=== PATIENT | male | born 1965 | race Caucasian/White ===

== ENCOUNTER 2020-07-25 03:26 | Inpatient (IN) | payer OTHER ==
[~2020-07-25] VITALS: Ht 175.3 cm; Wt 115.2 kg
[2020-07-25] MEDS ORDERED: ACET500 PO (05:59)
[2020-07-25] MEDS ORDERED: IBUP400 PO (06:00)
[2020-07-25 06:35] LABS: BASOPHILS ABSOLUTE AUTO 0.08 K/mm3 (0.00-0.23); BASOPHILS PERCENT AUTO 0 % (0-2); EOSINOPHILS ABSOLUTE AUTO 0.02 K/mm3 (0.00-0.68); EOSINOPHILS PERCENT AUTO 0 % (0-6); Hematocrit 43.2 % (37.0-53.0); Hemoglobin 14.4 g/dL (13.5-17.5); IMMATURE GRAN ABSOLUTE AUTO 0.11 K/mm3 (0.00-0.10); IMMATURE GRAN PERCENT AUTO 1 % (0-1); LYMPHOCYTES ABSOLUTE AUTO 1.59 K/mm3 (0.84-5.20); LYMPHOCYTES PERCENT AUTO 8 % (21-46); MONOCYTES ABSOLUTE AUTO 1.47 K/mm3 (0.16-1.47); MONOCYTES PERCENT AUTO 7 % (4-13); Mean Corpuscular HGB 29.9 pg (26.0-34.0); Mean Corpuscular HGB Conc 33.3 g/dL (31.5-36.5); Mean Corpuscular Volume 90 fL (80-100); Mean Platelet Volume 12.1 fL (9.1-12.4); NEUTROPHILS ABSOLUTE AUTO 17.17 K/mm3 (1.96-9.15); NEUTROPHILS PERCENT AUTO 84 % (41-73); Platelet Count 165 K/mm3 (150-400); RDW Coefficient Variation 13.9 % (11.7-14.2); RDW Standard Deviation 45.4 fL (35.1-46.3); Red Blood Cell Count 4.82 M/mm3 (4.30-5.90); White Blood Cell Count 20.44 K/mm3 (4.00-11.30)
[2020-07-25 06:57] LABS: Alanine Aminotransfer (ALT/SGP 31 U/L (12-78); Albumin, Blood 2.5 g/dL (3.4-5.0); Albumin/Globulin Ratio 0.5 (0.8-1.8); Alk Phos 108 U/L (50-136); Anion Gap 8 mmol/L (6-16); Aspartate Aminotrans (AST/SGOT 23 U/L (12-37); Bilirubin, Total 1.1 mg/dL (0.1-1.0); Blood Urea Nitrogen 5 mg/dL (8-24); Bun/Creatinine Ratio 11.3 (12.0-20.0); CO2, Blood 26 mmol/L (21-32); Calcium, Blood 8.5 mg/dL (8.5-10.1); Chloride, Blood 96 mmol/L (98-108); Creatinine, Blood 0.44 mg/dL (0.60-1.20); Globulin, Blood 4.9 g/dL (2.2-4.0); Glomerular Filtration Rate >60 (60-); Glucose, Blood 322 mg/dL (70-99); Potassium, Blood 3.6 mmol/L (3.5-5.5); Sodium, Blood 130 mmol/L (136-145); Total Protein, Blood 7.4 g/dL (6.4-8.2)
--- NOTE | 2020-07-25 10:04 | NUR ---
ATTEMPTED TO COMPLETE ADMISSION HX 2 TIMES ON SEPARATE OCCASIONS, EACH TIME PT WOULD FALL ASLEEP MID SENTENCE AND BE UNABLE TO ANSWER QUESTIONS APPROPRIATELY. WILL TRY AGAIN LATER WHEN PT IS MORE AWAKE.
[2020-07-25 10:37] LABS: SARS-Cov-2 (COVID-19) PCR, MMC NEGATIVE (NEGATIVE)
--- NOTE | 2020-07-25 11:20 | NUR ---
1050 DAY SURGERY TO ROOM TO TAKE PT TO OR.
--- NOTE | 2020-07-25 11:45 | NUR ---
IV 20 G LF WAS RUNNING WELL BUT THEN INFILTRATED. IV DC'D INTACT.
--- NOTE | 2020-07-25 11:45 | NUR ---
History, Chart, Medications and Allergies reviewed before start of procedure. Lungs clear T/O to Auscultation. Patient confirms NPO status and agrees with scheduled surgery. Pre-Op teaching done. Pt verbalizes understanding.
--- NOTE | 2020-07-25 13:39 | NUR ---
RETURNED FROM PACU, DROWSY BUT AROUSABLE. DENIES ANY DISCOMFORT, VSS. DRESSING TO LEFT AND POSTERIOR NECK DRY AND INTACT.
--- NOTE | 2020-07-25 15:00 | NUR ---
1330 PT TO ROOM FROM DAY SURGERY, PT GROGGY AT THIS TIME. ARRIVED W/ GAUZE AND TAPE TO POSTERIOR NECK & L SIDE OF NECK W/ ANTONI DRAIN UNDERNEATH GAUZE. DRAINAGE IS MINIMAL AND RED IN COLOR. VSS. NOTIFED TELE MONITOR PT WAS BACK TO ROOM & TELE WAS HOOKED BACK UP. PT DOES NOT DISPLAY ANY SIGNS OF PAIN AT THIS TIME. LUNG SOUNDS CLEAR, PT CURRENTLY ON 2L O2 VIA NC, SATURATIONS 95%. PT SLEEPING AT THIS TIME, WILL CONTINUE TO MONITOR AND ASSESS FURTHER.
--- NOTE | 2020-07-25 17:37 | NUR ---
DRESSING TO L POSTERIOR NECK CHANGED. 1 ABD PAD & 4X4 PACKAGE OF 10s FULLY SATURATED W/ SEROSANGUINOUS FLUID. LEFT SOME 4X4s IN PLACE ANTONI DRAIN WAS WRAPPED WITHIN, REINFORCED DRESSIGN WITH ADDITIONAL 4X4s, ABD PAD, & TAPE.
--- NOTE | 2020-07-25 18:26 | NUR ---
SHIFT SUMMARY S/P I&D ABCESS TO L POSTERIOR NECK. ANTONI DRAIN IN PLACE W/ 4X4 PACKAGE OF TEN, ABD PAD, & TAPE, DRAINING SEROUSANGUINOUS FLUID. DRESSING CHANGED ONCE SINCE ARRIVAL FROM SURGERY, 4X4s & ABD PAD WERE SATURATED W/ SEROUSANGUINOUS FLUID, REINFORCED DRESSING W/ ADDITIONAL 4X4s & ABD PAD. PT DENIES PAIN AT THIS TIME. TOLERATING PO FOOD & FLUIDS, PT ON ADA DIET, DENIES N/V. PT HAS BEEN ASLEEP MOST OF SHIFT. BLE EDEMA W/ REDNESS TO LLL. VSS. ON TELE, SINUS TACH IN THE TEENS. GOT PT OUT OF BED & TO BATHROOM TO VOID, AMBULATES WELL W/ SBA. SCDS IN PLACE. NO ACUTE EVENTS T/O SHIFT, WILL CONTINUE TO MONITOR & REPORT TO ONCOMING RN.
--- NOTE | 2020-07-25 21:00 | NUR ---
PT HAS BEEN LETHARGIC.SLOW TO WAKE.REQUIRING STAFF TO ELEVATE VOICE TO WAKE HIM FOR ASSESSMENTS AND CALLS PER FAMILY.PT IRRITABLE.CURSING USING F WORDS.STATING STAFF ARE IRRITATING HIM AND YELLING AT HIM.DURING BEDSIDE REPORT STAFF RAISED GOWN OVER L SHOULDER IT WAS HANGING OFF,AND PT STATED STAFF WERE BEING ROUGH WITH HIM.WHILE AWAKE,PT ATTEMPTED TO EAT DINNER AND COUGHING.SPITTING RICE OUT OF MOUTH COMPLAINING IT TASTED AWFUL AND WAS TOO DRY.DIETARY CONSULT WILL BE PLACED FOR MEETING PTS DESIRED FOODS AND PREPARATION. DUE TO COUGHING,RICK HAVE PT TAKE PO CAUTIOUSLY. DR BELL ROUNDING AND AWARE OF LETHARGY AND COUGHING WITH PO INTAKE. HE ADVISED LIMIT MORE TO LIQUIDS TONIGHT AND PROVIDE WITH OBSERVATION.
--- NOTE | 2020-07-25 22:55 | NUR ---
PT SPOKE WITH SISTER CANDIDA.AFTER WAKING FULLY,PT MORE PLEASANT AND COOPERATIVE.NOT CURSING AT STAFF.CBG 353.INSULIN GIVEN PER ORDERS AND NOTIFIED [place] OF CBG 353.NO NEW ORDERS RECEIVED.
--- NOTE | 2020-07-26 04:30 | NUR ---
SUMMARY PT ALERTNESS AND BEHAVIOR TOWARD STAFF CONTINUES TO IMPROVE. RECEIVED + BLOOD CX RESULTS TONIGHT.WITH ROUNDING TONIGHT,DR ARABELLA MAYA HE IS AWARE PT IS SEPTIC AND DID NOT WISH TO CHANGE ANY ORDERS.PT TOLERATING PO WITHOUT COUGH THIS AM.
[2020-07-26 04:48] LABS: BASOPHILS ABSOLUTE AUTO 0.07 K/mm3 (0.00-0.23); BASOPHILS PERCENT AUTO 1 % (0-2); EOSINOPHILS ABSOLUTE AUTO 0.12 K/mm3 (0.00-0.68); EOSINOPHILS PERCENT AUTO 1 % (0-6); Hematocrit 38.1 % (37.0-53.0); Hemoglobin 12.6 g/dL (13.5-17.5); IMMATURE GRAN ABSOLUTE AUTO 0.08 K/mm3 (0.00-0.10); IMMATURE GRAN PERCENT AUTO 1 % (0-1); LYMPHOCYTES PERCENT AUTO 14 % (21-46); MONOCYTES ABSOLUTE AUTO 1.12 K/mm3 (0.16-1.47); MONOCYTES PERCENT AUTO 8 % (4-13); Mean Corpuscular HGB 29.8 pg (26.0-34.0); Mean Corpuscular HGB Conc 33.1 g/dL (31.5-36.5); Mean Corpuscular Volume 90 fL (80-100); Mean Platelet Volume 11.7 fL (9.1-12.4); NEUTROPHILS ABSOLUTE AUTO 10.27 K/mm3 (1.96-9.15); NEUTROPHILS PERCENT AUTO 76 % (41-73); Platelet Count 153 K/mm3 (150-400); RDW Coefficient Variation 14.1 % (11.7-14.2); RDW Standard Deviation 46.7 fL (35.1-46.3); Red Blood Cell Count 4.23 M/mm3 (4.30-5.90); White Blood Cell Count 13.56 K/mm3 (4.00-11.30)
[2020-07-26 05:06] LABS: Alanine Aminotransfer (ALT/SGP 27 U/L (12-78); Albumin, Blood 1.9 g/dL (3.4-5.0); Albumin/Globulin Ratio 0.5 (0.8-1.8); Alk Phos 96 U/L (50-136); Anion Gap 6 mmol/L (6-16); Aspartate Aminotrans (AST/SGOT 26 U/L (12-37); Bilirubin, Total 1.1 mg/dL (0.1-1.0); Blood Urea Nitrogen 9 mg/dL (8-24); Bun/Creatinine Ratio 18.9 (12.0-20.0); CO2, Blood 28 mmol/L (21-32); Calcium, Blood 7.7 mg/dL (8.5-10.1); Chloride, Blood 96 mmol/L (98-108); Creatinine, Blood 0.48 mg/dL (0.60-1.20); Globulin, Blood 4.2 g/dL (2.2-4.0); Glomerular Filtration Rate >60 (60-); Glucose, Blood 291 mg/dL (70-99); Phosphorus, Blood 2.3 mg/dL (2.5-4.9); Potassium, Blood 3.3 mmol/L (3.5-5.5); Sodium, Blood 130 mmol/L (136-145); Total Protein, Blood 6.1 g/dL (6.4-8.2)
--- NOTE | 2020-07-26 10:51 | NUR ---
dressing removed from neck so patient can shower. dressing saturated with bloody drainage with treviño purulent material presemt. sallie drain in place and looped throgh 2 incisions on neck
[2020-07-26 13:53] LABS: Vancomycin, Trough 14.1 ug/mL (5.0-10.0)
--- NOTE | 2020-07-26 17:12 | NUR ---
SHIFT SUMMARY POD1 I&D ABCESS L POSTERIOR NECK. POSITIVE BLOOD & WOUND CX FOR MRSA. PAIN CONTROLLED PER EMAR. RECEIVING ABX PER EMAR. PT TOLERATING ADA DIET W/ NO TROUBLES SWALLOWING OR COUGHING. DENIES N/V. PT REPORT CHRONIC N/T TO L LOWER LEG. PT LETHARGIC MOST OF SHIFT, UP TO SHOWER ONCE DURING DAY. DRESSING CHANGED BY DR BELL THIS AM, INSTRUCTED PT TO SHOWER AND ALLOW SOAPY WATER TO RUN OVER ABCESS. REAPPLIED DRESSING TO ANTONI DRAIN W/ 4X4 GAUZE AND TAPE. DRAINING SEROUSANGUINOUS AND BROWNISH/NICOLE FLUID, SATURATED 4X4 PACKAGE OF TENS. PT OCCASIONALLY IRRITABLE T/O SHIFT. BLE EDEMA AND REDNESS TO L LOWER LEG, WEEPY & LEAKING YELLOW FLUID. PT RESTING AT THIS TIME, CALL LIGHT WITHIN REACH, WILL CONTINUE TO MONITOR & REPORT TO ONCOMING RN.
--- NOTE | 2020-07-26 17:29 | NUR ---
DR HERNANDEZ NOTIFIED OF CBG OF 404, NO NEW ORDERS
--- NOTE | 2020-07-27 04:05 | NUR ---
SHIFT SUMMARY POD#1 POSTERIOR NECK I+D. AAOX4. DRESSING TO NECK CHANGED THIS AM AT 0330, MODERATE AMOUNT OF SS/THICK PURULENT DRAINAGE NOTED. PAIN CONTROLLED WITH 2MG PO DILAUDID Q4H. NO NAUSEA/EMESIS. IV ABX PER ORDERS. BLE EDEMA + CELLULITIS NOTED, ELEVATED ON PILLOWS. REFUSING SCDs. GOOD PO INTAKE + OUTPUT. ELEVATED CHEMBGs, COVERED PER HIGH SLIDING SCALE + SEMGLEE INCREASED STARTED YESTARDAY EVENING. PT RESTED WELL T/O NIGHT. AWAITING LAB DRAW THIS AM. PT CURRENTLY RESTING IN BED WITH CALL LIGHT IN REACH.
[2020-07-27 05:11] LABS: BASOPHILS ABSOLUTE AUTO 0.05 K/mm3 (0.00-0.23); BASOPHILS PERCENT AUTO 1 % (0-2); EOSINOPHILS ABSOLUTE AUTO 0.19 K/mm3 (0.00-0.68); EOSINOPHILS PERCENT AUTO 2 % (0-6); Hemoglobin 12.7 g/dL (13.5-17.5); IMMATURE GRAN ABSOLUTE AUTO 0.06 K/mm3 (0.00-0.10); IMMATURE GRAN PERCENT AUTO 1 % (0-1); LYMPHOCYTES ABSOLUTE AUTO 1.29 K/mm3 (0.84-5.20); LYMPHOCYTES PERCENT AUTO 16 % (21-46); MONOCYTES ABSOLUTE AUTO 0.89 K/mm3 (0.16-1.47); MONOCYTES PERCENT AUTO 11 % (4-13); Mean Corpuscular HGB 29.5 pg (26.0-34.0); Mean Corpuscular HGB Conc 33.4 g/dL (31.5-36.5); Mean Corpuscular Volume 88 fL (80-100); Mean Platelet Volume 11.9 fL (9.1-12.4); NEUTROPHILS ABSOLUTE AUTO 5.85 K/mm3 (1.96-9.15); NEUTROPHILS PERCENT AUTO 70 % (41-73); Platelet Count 157 K/mm3 (150-400); RDW Coefficient Variation 14.1 % (11.7-14.2); RDW Standard Deviation 45.2 fL (35.1-46.3); Red Blood Cell Count 4.31 M/mm3 (4.30-5.90); White Blood Cell Count 8.33 K/mm3 (4.00-11.30)
[2020-07-27 05:33] LABS: Anion Gap 7 mmol/L (6-16); Blood Urea Nitrogen 10 mg/dL (8-24); Bun/Creatinine Ratio 23.6 (12.0-20.0); CO2, Blood 27 mmol/L (21-32); Calcium, Blood 7.6 mg/dL (8.5-10.1); Chloride, Blood 95 mmol/L (98-108); Creatinine, Blood 0.42 mg/dL (0.60-1.20); Glomerular Filtration Rate >60 (60-); Glucose, Blood 345 mg/dL (70-99); Potassium, Blood 3.5 mmol/L (3.5-5.5); Sodium, Blood 129 mmol/L (136-145)
--- NOTE | 2020-07-27 12:43 | NUR ---
PT SHOWERED, DRESSING CHANGED ON NECK.
--- NOTE | 2020-07-27 18:02 | NUR ---
SHIFT SUMMARY PT IS A/OX4, SBA IN ROOM. PT AMBULATED TO BATHROOM SEVERAL TIMES THIS SHIFT. PT HAD SHOWER TODAY, HAD DRESSINGS CHANGED, AND LINENS CHANGED. PT HAS BEEN TOLERATING PO INTAKE AND VOIDING. PROVIDER INCREASED INSULIN TODAY AND ORDERED BENADRYL CREAM FOR LEGS. PAIN HAS BEEN MANAGED WITH PO DILAUDED PRN PER ORDER. PT RESTING AT THIS TIME WATCHING TV. CALL LIGHT IN REACH.
[2020-07-28 05:05] LABS: BASOPHILS ABSOLUTE AUTO 0.04 K/mm3 (0.00-0.23); BASOPHILS PERCENT AUTO 1 % (0-2); EOSINOPHILS ABSOLUTE AUTO 0.15 K/mm3 (0.00-0.68); EOSINOPHILS PERCENT AUTO 2 % (0-6); Hematocrit 40.2 % (37.0-53.0); Hemoglobin 13.6 g/dL (13.5-17.5); IMMATURE GRAN ABSOLUTE AUTO 0.07 K/mm3 (0.00-0.10); IMMATURE GRAN PERCENT AUTO 1 % (0-1); LYMPHOCYTES ABSOLUTE AUTO 1.46 K/mm3 (0.84-5.20); LYMPHOCYTES PERCENT AUTO 21 % (21-46); MONOCYTES ABSOLUTE AUTO 0.68 K/mm3 (0.16-1.47); MONOCYTES PERCENT AUTO 10 % (4-13); Mean Corpuscular HGB 29.4 pg (26.0-34.0); Mean Corpuscular HGB Conc 33.8 g/dL (31.5-36.5); Mean Corpuscular Volume 87 fL (80-100); Mean Platelet Volume 11.5 fL (9.1-12.4); NEUTROPHILS ABSOLUTE AUTO 4.42 K/mm3 (1.96-9.15); NEUTROPHILS PERCENT AUTO 65 % (41-73); Platelet Count 163 K/mm3 (150-400); RDW Coefficient Variation 13.8 % (11.7-14.2); RDW Standard Deviation 44.2 fL (35.1-46.3); Red Blood Cell Count 4.62 M/mm3 (4.30-5.90); White Blood Cell Count 6.82 K/mm3 (4.00-11.30)
--- NOTE | 2020-07-28 05:10 | NUR ---
SHIFT SUMMARY POD#3 I+D NECK ABSCESS. AAOX4. PAIN CONTROLLED WITH 2MG PO DILAUDID Q4H. NO NAUSEA/EMESIS. DRESSING TO POSTERIOR NECK CHANGED X1 THIS SHIFT. IV ABX PER ORDERS. NO ACUTE CHANGES OVER NIGHT. PT UP FOR MOST OF NIGHT, REPORTING THIS SLEEP PATTERN IS HIS BASELINE. CURRENTLY PT IS SITTING UP IN BED WATCHING TV WITH CALL LIGHT IN REACH.
[2020-07-28 05:30] LABS: Anion Gap 7 mmol/L (6-16); Blood Urea Nitrogen 8 mg/dL (8-24); Bun/Creatinine Ratio 18.3 (12.0-20.0); CO2, Blood 27 mmol/L (21-32); Chloride, Blood 94 mmol/L (98-108); Creatinine, Blood 0.44 mg/dL (0.60-1.20); Glomerular Filtration Rate >60 (60-); Glucose, Blood 327 mg/dL (70-99); Potassium, Blood 3.4 mmol/L (3.5-5.5); Sodium, Blood 128 mmol/L (136-145); Vancomycin, Trough 15.4 ug/mL (5.0-10.0)
[2020-07-28 16:43] LABS: Source, Urine Clean Catch
[2020-07-28 16:53] LABS: Appearance, Urine Clear (Clear); Bilirubin, Urine Neg (Neg); Blood, Urine Neg (Neg); Color, Urine Yellow (P-Yellow); Glucose Qualitative, Urine 2+ (Neg); Ketones, Urine Neg (Neg); Leukocyte Esterase, Urine Neg (Neg); Nitrite, Urine Neg (Neg); Protein, Urine Neg (Neg); Urobilinogen, Urine NORM (Normal)
--- NOTE | 2020-07-28 17:17 | NUR ---
SHIFT SUMMARY PT HAS BEEN A/OX 4, IND IN ROOM AND UP TO BATHROOM. PT TOLERATING PO INTAKE AND VOIDING. PT HAD SHOWER TODAY AND LINENS WERE CHANGED. DRESSING ON NECK HAS BEEN CHANGED X2 THIS SHIFT. PT HAS A SPOT ON HIS LLE THAT HAS BEEN OOZING A SMALL AMOUNT; ASSESSED BY DR. BELL THIS MORNING, STATES NO NEED FOR INTERVENTION AT THIS TIME. DIURETICS STARTED THIS EVENING BY HOSPITALIST. INSULIN ALSO ADJUSTED TODAY. PT SITTING ON EDGE OF BED EATING DINNER AT THIS TIME.
--- NOTE | 2020-07-29 04:46 | NUR ---
SHIFT SUMMARY POD#4 POSTERIOR NECK I+D WITH ANTONI DRAIN. AAOX4. DISCOMFORT CONTROLLED WITH 2MG PO DILAUDID X1 THIS SHIFT. NO NAUSEA/EMESIS. DRESSING TO POSTERIOR NECK SATURATED X1, CHANGED AT 0300 THIS AM. GOOD PO INTAKE + OUTPUT. ELEVATED BLE T/O NIGHT. NO ACUTE CHANGES OVER NIGHT. PT CURRENTLY RESTING WELL THIS AM WITH CALL LIGHT IN REACH.
[2020-07-29 05:11] LABS: Anion Gap 5 mmol/L (6-16); Blood Urea Nitrogen 5 mg/dL (8-24); Bun/Creatinine Ratio 10.4 (12.0-20.0); CO2, Blood 30 mmol/L (21-32); Calcium, Blood 7.8 mg/dL (8.5-10.1); Chloride, Blood 99 mmol/L (98-108); Creatinine, Blood 0.48 mg/dL (0.60-1.20); Free Thyroxine 1.32 ng/dL (0.70-1.60); Glomerular Filtration Rate >60 (60-); Glucose, Blood 203 mg/dL (70-99); Potassium, Blood 3.2 mmol/L (3.5-5.5); Prostate Specific Antigen 0.737 ng/mL (0.000-4.000); Sodium, Blood 134 mmol/L (136-145)
--- NOTE | 2020-07-29 12:54 | NUR ---
Echocardiogram completed.
--- NOTE | 2020-07-29 17:02 | NUR ---
SUMMARY NO ACUTE CHANGES T/O SHIFT. PT INDEPENDENT IN ROOM. NEW POWERGLIDE TO RUE. IV ABX INFUSING AT THIS TIME. PT CBG THIS EVENING 124. USES CALL LIGHT APPROPRIATELY, WHICH IS IN REACH.
--- NOTE | 2020-07-29 19:04 | NUR ---
REPORT GIVEN TO ONCOMING SHIFT.
--- NOTE | 2020-07-30 05:32 | NUR ---
SHIFT SUMMARY POD1 I&D #2, A/O X4, VSS, TOLERATING PO, AMBULATING INDEPENDENTLY, VOIDING, WOUND CLEANED AND DRESSING CHANGED PER ORDER. NO ACUTE EVENTS THIS SHIFT. CALL LIGHT IN REACH, WILL CTM AND REPORT TO DAY RN.
--- NOTE | 2020-07-30 07:49 | NUR ---
DR BELL IN TO CHANGE DRESSING TO NECK
[2020-07-30 08:11] LABS: HIV SCREEN 4TH GENERATION WRFX Non Reactive (Non Reactive)
[2020-07-31 04:28] LABS: BASOPHILS ABSOLUTE AUTO 0.03 K/mm3 (0.00-0.23); BASOPHILS PERCENT AUTO 1 % (0-2); EOSINOPHILS ABSOLUTE AUTO 0.18 K/mm3 (0.00-0.68); EOSINOPHILS PERCENT AUTO 3 % (0-6); Hematocrit 37.1 % (37.0-53.0); Hemoglobin 12.5 g/dL (13.5-17.5); IMMATURE GRAN ABSOLUTE AUTO 0.04 K/mm3 (0.00-0.10); IMMATURE GRAN PERCENT AUTO 1 % (0-1); LYMPHOCYTES ABSOLUTE AUTO 1.66 K/mm3 (0.84-5.20); LYMPHOCYTES PERCENT AUTO 30 % (21-46); MONOCYTES ABSOLUTE AUTO 0.66 K/mm3 (0.16-1.47); MONOCYTES PERCENT AUTO 12 % (4-13); Mean Corpuscular HGB 29.7 pg (26.0-34.0); Mean Corpuscular HGB Conc 33.7 g/dL (31.5-36.5); Mean Corpuscular Volume 88 fL (80-100); Mean Platelet Volume 11.6 fL (9.1-12.4); NEUTROPHILS PERCENT AUTO 53 % (41-73); Platelet Count 185 K/mm3 (150-400); RDW Coefficient Variation 14.3 % (11.7-14.2); RDW Standard Deviation 45.7 fL (35.1-46.3); Red Blood Cell Count 4.21 M/mm3 (4.30-5.90); White Blood Cell Count 5.47 K/mm3 (4.00-11.30)
[2020-07-31 04:50] LABS: Anion Gap 4 mmol/L (6-16); Blood Urea Nitrogen 9 mg/dL (8-24); Bun/Creatinine Ratio 16.5 (12.0-20.0); CO2, Blood 31 mmol/L (21-32); Calcium, Blood 7.9 mg/dL (8.5-10.1); Chloride, Blood 99 mmol/L (98-108); Creatinine, Blood 0.55 mg/dL (0.60-1.20); Glomerular Filtration Rate >60 (60-); Glucose, Blood 164 mg/dL (70-99); Potassium, Blood 3.6 mmol/L (3.5-5.5); Sodium, Blood 134 mmol/L (136-145)
--- NOTE | 2020-07-31 06:38 | NUR ---
SHIFT SUMMARY SITTING UP ON THE SIDE OF HIS BED WHILE ENJOYING HOT COFFEE. MEDICATED FOR PAIN PER EMAR. HAS RESTED WELL OFF AND ON THIS SHIFT. DRESSING TO NECK REMAINS C/D/I. INDEPENDENT IN THE ROOM. AM LABS DRAWN FROM POWERIDE. CONTINENT OF BOWEL AND BLADDER. DENIES FURTHER NEEDS OR WANTS AT THIS TIME. SAFETY MEASURES IN PLACE. WILL CONTINUE TO MONITOR AND ADDRESS NEEDS THEY ARISE. WILL GIVE HAND OFF TO ONCOMING SHIFT USING SBAR DURING BEDSIDE REPORT.
[2020-07-31] MEDS ORDERED: CUBICIN500 MG IV (10:22)
[2020-07-31] MEDS ORDERED: INSULANPEN (10:22)
[2020-07-31] MEDS ORDERED: METF500 PO (10:24)
[2020-07-31] MEDS ORDERED: BUME1 PO (10:24)
[2020-07-31] MEDS ORDERED: HUMALOG JU100 UNIT/2 SQ (10:24)
[2020-07-31] MEDS ORDERED: Norco 5-325 Ta1 EACH PO (10:25)
--- NOTE | 2020-07-31 16:56 | NUR ---
DISCHARGE NOTE: PATIENT AND SPOUSE WERE EDUCATED ON DISCHARGE INSTRUCTIONS. BOTH OF THEM VERBALIZED UNDERSTANDING OF INSTRUCTIONS AND HAD NO FURTHER QUESTIONS. PATIENT IS ALERT AND ORIENTED X4. VS ARE WNL AND IS ON RA. PAIN IS MANAGED WITH PO NORCO. WOUND WAS CHANGED AND IS C/D/I. PATIENT WILL BE GOING HOME WITH POWERGLIDE FOR IV ABX TREATMENTS IN A FACILITY AT HOME. HE HAS HIS ITEMS GATHERED AND IS DRESSED. HARD PERSCRIPTION OF NARCOTIC IS WITH THE PATIENT IN INSTRUCTIONS FOLDER. PATIENT IS WALKING OUT WITH SPOUSE THAT THE SPOUSE WILL DRIVE AND GO HOME IN.
[2020-08-01 04:10] LABS: HCV LOG10 6.829 (.); HEPATITIS C QUANTITATION 6750000 IU/mL (.)
== END 2020-07-31 17:54 | disposition home or self-care (01) | DRG 854 ==
LOC: ER 03:26 → SURS 05:35
PROVIDERS: Internal Medicine; Internal Medicine Infectious Disease; Pharmacist; Surgery; ADMIT Internal Medicine
PROC: 0J950ZZ Drainage of Left Neck Subcutaneous Tissue and Fascia, Open Approach (ICD-10-PCS; principal; 2020-07-25 11:00)
DX: A41.02 Sepsis due to Methicillin resistant Staphylococcus aureus (principal); L02.11 Cutaneous abscess of neck; E87.1 Hypo-osmolality and hyponatremia; E11.65 Type 2 diabetes mellitus with hyperglycemia; Z91.14 Patient's other noncompliance with medication regimen; E87.6 Hypokalemia; B18.2 Chronic viral hepatitis C; I87.8 Other specified disorders of veins; E66.01 Morbid (severe) obesity due to excess calories; Z20.822 Contact with and (suspected) exposure to COVID-19; Z68.37 Body mass index [BMI] 37.0-37.9, adult; F17.210 Nicotine dependence, cigarettes, uncomplicated
CPT/HCPCS: 36415; 80048; 80053; 80202; 81003; 82533; 82947; 83036; 83605; 84100; 84439; 84443; 85025; 87040; 87070; 87075; 87077; 87147; 87186; 87205; 87389; 87522; 93306; 93970; 96374; 99285-25; A9270; G0103; J0878; J1815; J2250; J2405; J2543; J2704; J3010; J3370; J7030; J7050; J7120; U0004

== ENCOUNTER 2024-09-06 01:20 | Inpatient (IN) | payer OTHER ==
[~2024-09-06] VITALS: Ht 175.3 cm; Wt 86.1 kg
[2024-09-06] VITALS (16 sets, daily range): BP systolic 105–139; BP diastolic 60–82
[~2024-09-06 01:20] MED LIST: ACET500 PO; BUME1 PO; CUBICIN500 MG IV; HUMALOG JU100 UNIT/2 SQ; IBUP400 PO; INSULANPEN; METF500 PO; Norco 5-325 Ta1 EACH PO
[2024-09-06] MEDS ORDERED: Acetaminophen325 M1 PO (03:30)
[2024-09-06] MEDS ORDERED: IBUP800 PO (03:31)
[2024-09-06] MEDS ORDERED: Albuterol 2.5 MG/3 ML VIAL INH PRN ×2 (03:50→16:20)
[2024-09-06] MEDS ORDERED: Ipratropium/Albuterol SulF 2.5-0.5MG/3 ML Amp INH SCH ×2 (03:50→14:20)
[2024-09-06] MEDS ORDERED: Vancomycin (Pharmacy Consult) IV SCH (03:55)
[2024-09-06] MEDS ORDERED: NS 1,000 ML IV SCH (04:00)
[2024-09-06 04:07] LABS: BASOPHILS ABSOLUTE AUTO 0.05 K/mm3 (0.00-0.23); BASOPHILS PERCENT AUTO 0 % (0-2); EOSINOPHILS ABSOLUTE AUTO 0.10 K/mm3 (0.00-0.68); EOSINOPHILS PERCENT AUTO 1 % (0-6); Hematocrit 37.3 % (37.0-53.0); Hemoglobin 12.9 g/dL (13.5-17.5); IMMATURE GRAN ABSOLUTE AUTO 0.05 K/mm3 (0.00-0.10); IMMATURE GRAN PERCENT AUTO 0 % (0-1); LYMPHOCYTES ABSOLUTE AUTO 1.36 K/mm3 (0.84-5.20); LYMPHOCYTES PERCENT AUTO 10 % (21-46); MONOCYTES ABSOLUTE AUTO 1.18 K/mm3 (0.16-1.47); MONOCYTES PERCENT AUTO 9 % (4-13); Mean Corpuscular HGB Conc 34.6 g/dL (31.5-36.5); Mean Corpuscular Volume 88 fL (80-100); NEUTROPHILS ABSOLUTE AUTO 10.34 K/mm3 (1.96-9.15); NEUTROPHILS PERCENT AUTO 79 % (41-73); NRBC ABSOLUTE 0.00 K/mm3 (0.00-0.02); NRBC Auto 0.0 /100 WBC (0.0-0.2); Platelet Count 180 K/mm3 (150-400); RDW Coefficient Variation 13.9 % (11.7-14.2); RDW Standard Deviation 44.7 fL (35.1-46.3)
[2024-09-06 04:32] LABS: Alanine Aminotransfer (ALT/SGP 18.0 U/L (12-78); Albumin, Blood 2.1 g/dL (3.4-5.0); Albumin/Globulin Ratio 0.5 (0.8-1.8); Anion Gap 7.0 mmol/L (3-11); Aspartate Aminotrans (AST/SGOT 16.0 U/L (12-37); Bilirubin, Total 1.2 mg/dL (0.1-1.0); Blood Urea Nitrogen 10.0 mg/dL (8-24); CO2, Blood 28.0 mmol/L (21-32); Calcium, Blood 7.7 mg/dL (8.5-10.1); Chloride, Blood 100.0 mmol/L (98-108); Creatinine, Blood 0.36 mg/dL (0.60-1.20); Globulin, Blood 4.0 g/dL (2.2-4.0); Glucose, Blood 261.0 mg/dL (70-99); Potassium, Blood 3.4 mmol/L (3.5-5.5); Sodium, Blood 132.0 mmol/L (136-145); Total Protein, Blood 6.1 g/dL (6.4-8.2)
[2024-09-06] MEDS ORDERED: Naloxone HCl 0.4MG / ML 1ML Vial IV PRN ×2 (04:50→06:05)
[2024-09-06] MEDS ORDERED: Piperacillin/Tazobactam Sod 3.375 GM in NS 100 ML IV SCH (04:51)
--- NOTE | 2024-09-06 05:17 | NUR ---
SHIFT SUMMARY PT ARRIVED STABLE VIA AMBULANCE FROM [place]. PT ARRIVED A&OX4. VERY PLEASANT AND AGREEABLE TO CARE. VSS ON RA >92%. PT ARRIVED WITH SEVERAL OPEN WOUNDS AND MULTIPLE BRUISES IN VARIOUS HEALING STAGES. PICTURES IN CHART. PT PLACED NPO. BLOOD SUGAR TAKEN AND CONTROLLED. MD AT BEDSIDE FOR EVALUATION. ABX ORDERED AND GIVEN PER EMAR. CONTINUOUS FLUIDS RUNNING. PT USING URINAL AT BEDSIDE. NO FURTHER QUESTIONS OR CONCERNS AT THIS TIME. WILL CONTINUE WITH PLAN OF CARE.
[2024-09-06] MEDS ORDERED: Morphine Sulfate 4 MG/1 ML Injection IV PRN (06:05)
[2024-09-06] MEDS ORDERED: Potassium Chl 20MEQ/Water100ML 100 ML IV SCH (06:20)
[2024-09-06] MEDS ORDERED: Insulin Human Lispro 100 Units/ML 3ML Syringe SC SCH (07:30)
[2024-09-06] MEDS ORDERED: Lactobacil 2-S.Thermo-Bifido 1 1 Cap PO SCH (09:00)
[2024-09-06] MEDS ORDERED: Insulin Regular 100 UNIT/ML 10ML Vial SC SCH (12:00)
[2024-09-06] MEDS ORDERED: Tranexamic Acid 100 ML IV SCH (14:20)
[2024-09-06] MEDS ORDERED: FentaNYL Citrate 50 MCG/ML 2 ML Injection ONE (15:09)
[2024-09-06] MEDS ORDERED: ePHEDrine Sulfate 50 MG/ML 1ML Injection IV PRN (16:15)
[2024-09-06] MEDS ORDERED: FentaNYL Citrate 50 MCG/ML 2 ML Injection IV PRN ×2 (16:15→16:20)
[2024-09-06] MEDS ORDERED: HYDROmorphone HCl/Pf 1MG SYR IV PRN (16:15)
--- NOTE | 2024-09-06 16:19 | NUR ---
History, Chart, Medications and Allergies reviewed before start of procedure. Patient confirms NPO status and agrees with scheduled surgery. Pre-Op teaching done. Pt verbalizes understanding. LUNGS COA, DUO GIVEN.
[2024-09-06] MEDS ORDERED: Ondansetron HCl 2 MG / ML 2ML Vial IV PRN (16:20)
[2024-09-06] MEDS ORDERED: Metoclopramide HCl 5MG / ML 2ML Vial IV PRN (16:20)
[2024-09-06] MEDS ORDERED: Labetalol HCL 5 MG/ML 4ML Injection (Single Dose) IV PRN (16:20)
[2024-09-06] MEDS ORDERED: Midazolam HCl 1MG / ML 2ML Vial ONE (16:35)
--- NOTE | 2024-09-06 16:48 | NUR ---
SHIFT SUMMARY. PT HAS BEEN AOX4, COOPERATIVE, ABLE TO MAKE NEEDS KNOWN. PAIN HAS BEEN ADEQUATELY MANAGED VIA EMAR. VITALS HAVE BEEN STABLE. HAS BEEN RUNNNING SINUS TACH THROUGHOUT MOST OF SHIFT. AT SURGERY RIGHT NOW. EARLY THIS AFTERNOON, PT SPOKE WITH DR. TEJEDA AND DR. SAMUEL WHO DISCUSSED LIKELY SURGERY AND I&D vs AMPUTATION. PT HAS BEEN VERY EMOTIONAL THROUGHOUT REMAINDER OF SHIFT AFTER THIS CONVERSATION, BELIEVING THAT AMPUTATION WAS THE ONLY PATH FORWARD AND NOT SURE IF HE IS WILLING TO GO THROUGH WITH THAT. EDUCATED PT SEVERAL TIMES THAT AMPUTATION WAS ONLY ONE POSSIBLE OPTION PER CONVERSATION WITH DR. SAMUEL AND THAT IF HE DID NOT WANT TO DO THAT IT WOULD NOT BE DONE WITHOUT CONSENT. AT TIME OR NURSES CAME TO UNIT TO COLLECT PT, DISCUSSED W/ OR NURSES WHO REPORTED PT WILL BE ABLE TO DISCUSS W/ DR. SAMUEL PRE PROCEDURE. PT AGREEABLE AND WAS WHEELED DOWN TO OR SHORTLY THEREAFTER. WAITING FOR PT ARRIVAL BACK FROM OR.
[2024-09-06] MEDS ORDERED: Vancomycin HCl 1000 MG ADDvantage ONE (17:30)
[2024-09-06] MEDS ORDERED: Albuterol 2.5 MG/3 ML VIAL ONE (18:43)
--- NOTE | 2024-09-06 20:07 | NUR ---
UPDATE PT ARRIVED FROM PACU @ 1930. VSS ON 2L NC @ 100%. PT A&OX4. STATING PAIN IS @ 05/01. RLE APPEARS CDI, PACU STATED THEY REINFORCED DRESSING BEFORE ARRIVAL. PTs RLE PLACED ON PILLOWS ELEVATED. ABX RUNNING AT THIS TIME PER EMAR. PT SOUND ASLEEP AND COMFORTABLE IN BED WITH CALL LIGHT WITHIN REACH. WILL CONTINUE WITH PLAN OF CARE.
[2024-09-07] VITALS (18 sets, daily range): BP systolic 103–141; BP diastolic 58–85
[2024-09-07 04:19] LABS: BASOPHILS ABSOLUTE AUTO 0.07 K/mm3 (0.00-0.23); BASOPHILS PERCENT AUTO 0 % (0-2); EOSINOPHILS ABSOLUTE AUTO 0.02 K/mm3 (0.00-0.68); EOSINOPHILS PERCENT AUTO 0 % (0-6); Hematocrit 31.8 % (37.0-53.0); Hemoglobin 10.9 g/dL (13.5-17.5); IMMATURE GRAN ABSOLUTE AUTO 0.17 K/mm3 (0.00-0.10); IMMATURE GRAN PERCENT AUTO 1 % (0-1); LYMPHOCYTES ABSOLUTE AUTO 1.39 K/mm3 (0.84-5.20); LYMPHOCYTES PERCENT AUTO 6 % (21-46); MONOCYTES ABSOLUTE AUTO 2.22 K/mm3 (0.16-1.47); MONOCYTES PERCENT AUTO 10 % (4-13); Mean Corpuscular HGB Conc 34.3 g/dL (31.5-36.5); Mean Corpuscular Volume 87 fL (80-100); NEUTROPHILS ABSOLUTE AUTO 17.94 K/mm3 (1.96-9.15); NEUTROPHILS PERCENT AUTO 82 % (41-73); NRBC ABSOLUTE 0.00 K/mm3 (0.00-0.02); NRBC Auto 0.0 /100 WBC (0.0-0.2); Platelet Count 218 K/mm3 (150-400); RDW Coefficient Variation 14.1 % (11.7-14.2); RDW Standard Deviation 44.8 fL (35.1-46.3)
[2024-09-07 04:48] LABS: Vancomycin, Trough 8.8 ug/mL (5.0-10.0)
[2024-09-07 04:49] LABS: Anion Gap 10.0 mmol/L (3-11); Blood Urea Nitrogen 12.0 mg/dL (8-24); CO2, Blood 26.0 mmol/L (21-32); Calcium, Blood 7.5 mg/dL (8.5-10.1); Chloride, Blood 102.0 mmol/L (98-108); Creatinine, Blood 0.45 mg/dL (0.60-1.20); Glucose, Blood 255.0 mg/dL (70-99); Potassium, Blood 3.6 mmol/L (3.5-5.5); Sodium, Blood 134.0 mmol/L (136-145)
--- NOTE | 2024-09-07 05:58 | NUR ---
SHIFT SUMMARY PT VERY SOMNOLENT SINCE COMING BACK FROM PACU. HOWEVER WAKES EASILY TO VERBAL STIMULI. ABLE TO EXPRESS WHEN IN PAIN. PRNs GIVEN PER EMAR WITH GOOD RELIEF. VSS. PT REQUIRED 2L NC THROUGHOUT NIGHT TO MAINTAIN >90%. HOWEVER REFUSED SPO2 MONITORING. FREQUENT SPOT CHECKING UTILIZED. PT REMAINS ON TELE, ST 100s. PT REMAINS AFEBRILE HOWEVER REMAINED >99 DEGREES F THROUGHOUT NIGHT. PTs DRESSING REDRESSED HOWEVER PACKED GAUZE LEFT UNTOUCHED AND ONLY REDRESSED ABD PADS, KERLIX, PITO WRAPPED D/T DRAINAGE. Q6HR CBGs TAKEN AND TX PER EMAR. NO FURTHER QUESTIONS OR CONCERNS AT THIS TIME. PT RESTING COMFORTABLY IN BED WITH CALL LIGHT WITHIN REACH.
[2024-09-07] MEDS ORDERED: Tranexamic Acid 100 ML IV SCH (10:25)
[2024-09-07] MEDS ORDERED: Insulin Human Lispro 100 Units/ML 3ML Syringe SC SCH (12:00)
--- NOTE | 2024-09-07 12:01 | NUR ---
THIS RN SPOKE TO DR. RUFF ABOUT ONGOING URINARY RETENTION AND THE PT HAVING MULTIPLE SURGICAL INTERVENTIONS ON HIS RLE. THE PT IS RETAINING >450CC THIS AFTERNOON AND HAS ALREADY BEEN STRAIGHT CATH'D TWICE IN THE LAST 24HRS. DR. RUFF ORDERED A REYNOLDS CATH D/T SITUATIONS LISTED ABOVE.. SEE NOTES FOR UPDATES.
[2024-09-07] MEDS ORDERED: Lidocaine 2% Jelly Uro-Jet UR ONE (12:35)
--- NOTE | 2024-09-07 14:02 | NUR ---
MORNING SUMMARY THE PT IS DROWSY BUT ORIENTEDX4. HE HAS SEVERE RLE PAIN AND WAS MEDICATED PER EMAR. THE PT HAS BEEN Q2, BEDREST THIS SHIFT D/T PAIN. DR. BROWN CAME TO BEDSIDE AROUND 0900 AND ASSESSED THE PT'S WOUND POST I&D DONE 09/06. THE PT'S DRESSING WAS CHANGED W/ DR. BROWN. WOUND CARE ORDERS WERE PLACED. ORDER TO PROVIDED WOUND CARE EVERY SHIFT AND NEEDED. THE PT JUST WENT FOR A SECOND I &D ABOUT 1415. CHG BATH PROVIDED BEFORE LEAVING FOR DAY SURGERY. DR. BROWN STATED DOING ANOTHER I&D POSSIBLY 09/09. PHOTOS WERE TAKEN AND ADDED TO THE CHART THIS MORNING. THE PT HAS BEEN HAVING URINARY RETENTION AND NOW HAS A REYNOLDS CATH. SEE PREIVOUS NOTE. INSERTION WAS NOT TOLERATED WELL, SO UROJET AND 14FR COUDE WERE UTILIZED. ON TELE THE PT HAS BEEN SR/ST 90'S-100'S. BP STABLE. HE HAS BEEN ON RA THIS SHIFT W/ SP02 >93% AND HE DENIES ANY SOB. LR WAS STARTED FOR MAINTAINCE FLUID AND IS INFUSING PER EMAR. SEE NOTES FOR UPDATES .
--- NOTE | 2024-09-07 14:30 | NUR ---
TO [facility] FOR PROCEDURE. DROWSY, AWAKES EASILY. RIGHT LOWER EXT WRAPPED IN PITO WRAP. CDI. VERBALIZED UNDERSTANDING OF TODAY'S PROCEDURE. CONFIRMS NPO STATUS. CBG 191
[2024-09-07] MEDS ORDERED: FentaNYL Citrate 50 MCG/ML 2 ML Injection ONE (16:21)
[2024-09-07] MEDS ORDERED: Ondansetron HCl 2 MG / ML 2ML Vial ONE (16:39)
[2024-09-07] MEDS ORDERED: FentaNYL Citrate 50 MCG/ML 2 ML Injection IV PRN ×2 (17:00)
[2024-09-07] MEDS ORDERED: Ondansetron HCl 2 MG / ML 2ML Vial IV PRN (17:00)
[2024-09-07] MEDS ORDERED: Prochlorperazine Edisylate 10 mg Vial IV PRN (17:00)
[2024-09-07] MEDS ORDERED: Albuterol 2.5 MG/3 ML VIAL INH PRN (17:00)
[2024-09-07] MEDS ORDERED: HYDROmorphone HCl/Pf 1MG SYR IV PRN (17:00)
[2024-09-07] MEDS ORDERED: Metoclopramide HCl 5MG / ML 2ML Vial IV PRN (17:00)
--- NOTE | 2024-09-07 18:18 | NUR ---
PT ARRIVED BACK FROM PACU @ ~1725. COMPLAINING OF "15/10" PAIN, MOANING, GRIMACING, OBVIOUSLY VERY PAINFUL. VITALS STABLE. DRESSING C/D/I POST OP. ADMINISTERED MORPHINE PER EMAR. PT NOW ABLE TO REST COMFORTABLY, VITALS REMAIN STABLE. RESPIRATIONS >12. RUNNING SINUS 90s. MOST RECENT MAP 88.
[2024-09-08 04:00] VITALS: BP 111/67
[2024-09-08 04:10] LABS: BASOPHILS ABSOLUTE AUTO 0.08 K/mm3 (0.00-0.23); BASOPHILS PERCENT AUTO 1 % (0-2); EOSINOPHILS ABSOLUTE AUTO 0.16 K/mm3 (0.00-0.68); EOSINOPHILS PERCENT AUTO 1 % (0-6); Hematocrit 30.3 % (37.0-53.0); Hemoglobin 10.2 g/dL (13.5-17.5); IMMATURE GRAN ABSOLUTE AUTO 0.08 K/mm3 (0.00-0.10); IMMATURE GRAN PERCENT AUTO 1 % (0-1); LYMPHOCYTES ABSOLUTE AUTO 1.54 K/mm3 (0.84-5.20); LYMPHOCYTES PERCENT AUTO 10 % (21-46); MONOCYTES ABSOLUTE AUTO 1.87 K/mm3 (0.16-1.47); MONOCYTES PERCENT AUTO 12 % (4-13); Mean Corpuscular HGB Conc 33.7 g/dL (31.5-36.5); Mean Corpuscular Volume 89 fL (80-100); NEUTROPHILS ABSOLUTE AUTO 12.44 K/mm3 (1.96-9.15); NEUTROPHILS PERCENT AUTO 77 % (41-73); NRBC ABSOLUTE 0.00 K/mm3 (0.00-0.02); NRBC Auto 0.0 /100 WBC (0.0-0.2); Platelet Count 206 K/mm3 (150-400); RDW Coefficient Variation 14.2 % (11.7-14.2); RDW Standard Deviation 46.0 fL (35.1-46.3)
[2024-09-08 04:29] LABS: Anion Gap 7 mmol/L (3-11); Blood Urea Nitrogen 12 mg/dL (8-24); CO2, Blood 29 mmol/L (21-32); Calcium, Blood 7.1 mg/dL (8.5-10.1); Chloride, Blood 102 mmol/L (98-108); Creatinine, Blood 0.52 mg/dL (0.60-1.20); Glucose, Blood 205 mg/dL (70-99); Potassium, Blood 3.3 mmol/L (3.5-5.5); Sodium, Blood 135 mmol/L (136-145); Vancomycin, Trough 16.2 ug/mL (5.0-10.0)
--- NOTE | 2024-09-08 05:15 | NUR ---
SHIFT SUMMARY PT REMAINED ALERT AND ORIENTED THROUGHOUT NIGHT HOWEVER LETHARGIC. PT WAS ABLE TO REST COMFORTABLY THROUGHOUT NIGHT, PAIN MEDS GIVEN PER EMAR FOR PAIN HOWEVER HAD TO WAKE PT UP TO ASK ABOUT PAIN Q4HRS. PT WAS ABLE TO KEEP RLE ELEVATED ON PILLOW THROUGHOUT NIGHT WITH MINIMAL DRAINAGE. THIS NURSE DID NOT NEED TO REINFORCE DRESSING. PT GIVEN ABX AND FLUIDS THROUGHOUT NIGHT. REYNOLDS OUTPUT TEA COLORED HOWEVER GOOD OUTPUT. PT WAS ABLE TO WAKE UP FOR A WHILE TO EAT DINNER AND DRINK WATER. VSS ON RA-2L NC TO MAINTAIN >90% WHILE ASLEEP ON MORPHINE. NO FURTHER QUESTIONS OR CONCERNS AT THIS TIME. WILL CONTINUE WITH PLAN OF CARE.
[2024-09-08 07:36] VITALS: BP 107/69
[2024-09-08 11:29] VITALS: BP 117/68
[2024-09-08 16:28] VITALS: BP 103/63
[2024-09-08] MEDS ORDERED: Insulin Human Lispro 100 Units/ML 3ML Syringe SC SCH (16:30)
--- NOTE | 2024-09-08 16:33 | NUR ---
UPDATE MD BROWN IN ROOM TO ASSESS RLE AND DRESSING CHANGE. CLEANSE W/ WOUND CLEANSER, EACH WOUND PACKED W/ STERILE NS SOAKED KERLEX. 4X4 PLACED IN RADHA PATTERN OVER PACKED WOUNDS. ABD PAD THEN PLACED ON TOP. WRAPPED LOOSELY WITH KERLEX. THEN WRAPPED LOOSELY WITH PITO WRAP FROM HEEL TO KNEE. ELEVATED ON PILLOW. TO BE CHANGED QSHIFT.
--- NOTE | 2024-09-08 18:23 | NUR ---
SHIFT SUMMARY NO ACUTE CHANGES SINCE PREVIOUS NOTE. VSS. PT ORIENTED. C/O OF PAIN, MEDICATED PER EMAR. REYNOLDS CATHETER DRAINING TEA COLORED URINE TO GRAVITY. LR INFUSING PER EMAR. ABX INFUSED PER EMAR. NO BM THIS SHIFT. R LEG ELEVATED ON PILLOWS. CALL LIGHT IN REACH.
[2024-09-08 20:39] VITALS: BP 105/64
[2024-09-08] MEDS ORDERED: Insulin Glargine-Yfgn 100 Unit/mL 3 ML SYR SC SCH (21:00)
[2024-09-09 00:31] VITALS: BP 111/68
[2024-09-09 04:01] VITALS: BP 105/65
[2024-09-09 04:11] LABS: BASOPHILS ABSOLUTE AUTO 0.08 K/mm3 (0.00-0.23); BASOPHILS PERCENT AUTO 1 % (0-2); EOSINOPHILS ABSOLUTE AUTO 0.30 K/mm3 (0.00-0.68); EOSINOPHILS PERCENT AUTO 2 % (0-6); Hematocrit 28.8 % (37.0-53.0); Hemoglobin 9.7 g/dL (13.5-17.5); IMMATURE GRAN ABSOLUTE AUTO 0.09 K/mm3 (0.00-0.10); IMMATURE GRAN PERCENT AUTO 1 % (0-1); LYMPHOCYTES ABSOLUTE AUTO 1.43 K/mm3 (0.84-5.20); LYMPHOCYTES PERCENT AUTO 11 % (21-46); MONOCYTES ABSOLUTE AUTO 1.60 K/mm3 (0.16-1.47); MONOCYTES PERCENT AUTO 12 % (4-13); Mean Corpuscular HGB Conc 33.7 g/dL (31.5-36.5); Mean Corpuscular Volume 89 fL (80-100); NEUTROPHILS ABSOLUTE AUTO 10.15 K/mm3 (1.96-9.15); NEUTROPHILS PERCENT AUTO 74 % (41-73); NRBC ABSOLUTE 0.00 K/mm3 (0.00-0.02); NRBC Auto 0.0 /100 WBC (0.0-0.2); Platelet Count 214 K/mm3 (150-400); RDW Coefficient Variation 14.0 % (11.7-14.2); RDW Standard Deviation 45.7 fL (35.1-46.3)
[2024-09-09 04:33] LABS: Alanine Aminotransfer (ALT/SGP 14.0 U/L (12-78); Albumin, Blood 1.5 g/dL (3.4-5.0); Albumin/Globulin Ratio 0.4 (0.8-1.8); Anion Gap 8.0 mmol/L (3-11); Aspartate Aminotrans (AST/SGOT 21.0 U/L (12-37); Bilirubin, Total 0.8 mg/dL (0.1-1.0); Blood Urea Nitrogen 17.0 mg/dL (8-24); CO2, Blood 29.0 mmol/L (21-32); Calcium, Blood 7.5 mg/dL (8.5-10.1); Chloride, Blood 101.0 mmol/L (98-108); Creatinine, Blood 0.93 mg/dL (0.60-1.20); Globulin, Blood 3.7 g/dL (2.2-4.0); Glucose, Blood 254.0 mg/dL (70-99); Potassium, Blood 3.9 mmol/L (3.5-5.5); Sodium, Blood 134.0 mmol/L (136-145); Total Protein, Blood 5.2 g/dL (6.4-8.2)
--- NOTE | 2024-09-09 05:18 | NUR ---
SHIFT SUMMARY PT ALERT AND ORIENTED X 4. PT GIVEN PRN MORPHINE AND PRN OXYCODONE IN ROTATING SCHEDULE WITH GOOD PAIN CONTROL. DRESSING CHANGED ON RLE, PT TOLERATED OK. PT 80S NSR ON MONITOR WITH NO C/O OF CP. PT ON RA-2L WITH CLEAR LUNG SOUNDS. VSS. PT IN NAD. PT ABLE TO MAKE NEED KNOWN. Q2 TURNED. PT'S RLE ELEVATED ON PILLOW T/O THE NIGHT.
[2024-09-09 07:35] VITALS: BP 99/67
[2024-09-09] MEDS ORDERED: Polyethylene Glycol 3350 17 gm PO PRN (09:25)
--- NOTE | 2024-09-09 10:22 | NUR ---
RECEIVED REPORT FOR ANSHUL IN PCU
[2024-09-09 10:48] VITALS: BP 113/72
--- NOTE | 2024-09-09 11:05 | NUR ---
TRANSFER NOTE PT A&OX4, VSS. PT CHANGED TO MEDICAL NO TELE STATUS. REPORT GIVEN TO MEDICAL FLOOR RN. PT TRANSFERRED TO ROOM 358 W/ BELONGINGS, MEDICATIONS, AND LIGHTERS THAT WERE LOCKED IN DRAWER.
--- NOTE | 2024-09-09 11:50 | NUR ---
APPROX 1040 PATIENT ARRIVED TO THE UNIT VIA BED, PATIENT ALERT, NO SIGNS OR SYMPTOMS OF DISTRESS. PATIENT SETTLED IN ROOM. CALL LIGHT PROVIDED. PLAN OF CARE ONGOING. LIGHTERS LOCKED IN DRAWER
[2024-09-09] MEDS ORDERED: Enoxaparin 40 MG/0.4 ML SYR SC SCH (12:00)
--- NOTE | 2024-09-09 16:26 | NUR ---
SHIFT SUMMARY: NO EVENTS OR CHANGES WITH THE PATIENT SINCE HE HAS ARRIVED TO THE UNIT FROM PCU. PATIENT REPORTS HE CALLED SEVERAL TIMES; BUT NO CALLS RECEIVED BUS ESCORT LIGHT SYSTEM. PATIENT REPORTS MISSING TABLET FROM PCU; PCU CALLED AND NO TABLET WAS FOUND. PATIENT LABILE, FLAT,IRRITABLE IN MOOD. HE IS BEING REPOSITIONED Q2HRS, CALL LIGHT WITHIN REACH, BED IN LOWEST POSITION, SPOKE WITH PATIENT'S DAUGHTER THIS AFTERNOON, PLAN OF CARE ONGOING.
--- NOTE | 2024-09-09 17:55 | NUR ---
WOUND CARE COMPLETED @ 1740 PER WOUND CARE ORDER/NOTE PLACED ABOUT WOUND CARE.
[2024-09-09] MEDS ORDERED: Piperacillin/Tazobactam Sod 3.375 GM in NS 100 ML IV SCH (18:00)
[2024-09-09 19:26] VITALS: BP 113/65
[2024-09-10] MEDS ORDERED: NS 250 ML IV PRN (00:10)
[2024-09-10 04:25] VITALS: BP 104/64
--- NOTE | 2024-09-10 05:09 | NUR ---
SHIFT SUMMARY NO ACUTE EVENTS DURING THIS SHIFT. MEDICATED PER EMAR FOR 10/10RLE PAIN WITH GOOD EFFECTIVNESS PER PT REPORT. LR INFUSING ORDERED. ACUTE REYNOLDS DRAINING YELLOW COLOR URINE>1L DURING THIS SHIFT. PT REPORTS CALL LIGHT NOT WORKING, PT CRYING WHEN THIS PARKING ENFORCER CHECKED THE CALL LIGHT WHICH CALLS OUT W/O ANY ISSUES. CONTINUING PT EDUCATION. RA, 2L VIA NASAL CANNULA AFTER MORPHINE ADMINISTRATION PRIOR TO DRESSING CHANGE. HS BG 225, 10 UNITS GLARGINE ADMINISTERED ORDERED. BED AT THE LOWEST POSITION, CALL LIGHT W/I REACH. CALL LIGHT WORKING. PT IS LABILE, A/O X4, FORGETFUL AT TIMES. REDIRECTED W/O ANY ISSUES. USED EMPATHY AND ACTIVE LISTENING.
[2024-09-10 05:40] LABS: BASOPHILS ABSOLUTE AUTO 0.06 K/mm3 (0.00-0.23); BASOPHILS PERCENT AUTO 1 % (0-2); EOSINOPHILS ABSOLUTE AUTO 0.19 K/mm3 (0.00-0.68); EOSINOPHILS PERCENT AUTO 2 % (0-6); Hematocrit 28.8 % (37.0-53.0); Hemoglobin 9.5 g/dL (13.5-17.5); IMMATURE GRAN ABSOLUTE AUTO 0.10 K/mm3 (0.00-0.10); IMMATURE GRAN PERCENT AUTO 1 % (0-1); LYMPHOCYTES ABSOLUTE AUTO 1.94 K/mm3 (0.84-5.20); LYMPHOCYTES PERCENT AUTO 16 % (21-46); MONOCYTES ABSOLUTE AUTO 1.74 K/mm3 (0.16-1.47); MONOCYTES PERCENT AUTO 14 % (4-13); Mean Corpuscular HGB Conc 33.0 g/dL (31.5-36.5); Mean Corpuscular Volume 89 fL (80-100); NEUTROPHILS ABSOLUTE AUTO 8.26 K/mm3 (1.96-9.15); NEUTROPHILS PERCENT AUTO 67 % (41-73); NRBC ABSOLUTE 0.00 K/mm3 (0.00-0.02); NRBC Auto 0.0 /100 WBC (0.0-0.2); Platelet Count 251 K/mm3 (150-400); RDW Coefficient Variation 13.9 % (11.7-14.2); RDW Standard Deviation 45.1 fL (35.1-46.3)
[2024-09-10 06:00] LABS: Alanine Aminotransfer (ALT/SGP 14.0 U/L (12-78); Albumin, Blood 1.6 g/dL (3.4-5.0); Albumin/Globulin Ratio 0.4 (0.8-1.8); Anion Gap 7.0 mmol/L (3-11); Aspartate Aminotrans (AST/SGOT 20.0 U/L (12-37); Bilirubin, Total 0.9 mg/dL (0.1-1.0); Blood Urea Nitrogen 18.0 mg/dL (8-24); CO2, Blood 29.0 mmol/L (21-32); Calcium, Blood 7.5 mg/dL (8.5-10.1); Chloride, Blood 103.0 mmol/L (98-108); Creatinine, Blood 1.08 mg/dL (0.60-1.20); Globulin, Blood 3.6 g/dL (2.2-4.0); Glucose, Blood 226.0 mg/dL (70-99); Potassium, Blood 3.7 mmol/L (3.5-5.5); Sodium, Blood 135.0 mmol/L (136-145); Total Protein, Blood 5.2 g/dL (6.4-8.2)
[2024-09-10 07:32] VITALS: BP 111/59
[2024-09-10] MEDS ORDERED: Polyethylene Glycol 3350 17 gm PO SCH (11:00)
[2024-09-10] MEDS ORDERED: Insulin Human Lispro 100 Units/ML 3ML Syringe SC SCH ×2 (11:30)
[2024-09-10 15:26] VITALS: BP 121/66
[2024-09-10 19:29] VITALS: BP 100/63
[2024-09-10] MEDS ORDERED: Insulin Glargine-Yfgn 100 Unit/mL 3 ML SYR SC SCH ×2 (21:00)
--- NOTE | 2024-09-10 22:45 | NUR ---
THIS INDIAN NANNY RECEIVED A NOTE FROM THE CHARGE NURSE NOAH TO CALL HANS VIVAR WHO IS PT'S NIECE. HANS REQUESTING AN UPDATE FOR HER UNCLE'S/PT'S CONDITION. THIS INDIAN NANNY ASKED THE PT IF IT WOULD BE OK TO SPEAK WITH HANS. PER PT'S STATEMENT "NO, I DON'T WANT ANYONE TO KNOW ABOUT MY MEDICAL STUFF", THIS INDIAN NANNY POLITELY DENIED TO SPEAK WITH HANS ABOUT THE PT AND HIS MEDICAL CONDITION OR ANY UPDATES. CHARGE NURSE NOTIFIED.
[2024-09-11] VITALS (33 sets, daily range): BP systolic 11–134; BP diastolic 48–100
[2024-09-11] MEDS ORDERED: Tranexamic Acid 100 ML IV SCH (00:01)
--- NOTE | 2024-09-11 03:23 | NUR ---
SHIFT SUMMARY NO ACUTE EVENTS DURING THIS SHIFT. NPO AFTER MIDNIGHT FOR A SCHEDULED RIGHT BKA. DRESSING C/D/I, LE'S ELEVATED WITH PILLOWS. HS BG 184. ACUTE REYNOLDS DRAINING YELLOW COLOR URINE. MEDICATED PER EMAR FOR 8-10/10 RIGHT LE PAIN. PT REPORTS HIS SISTER IS TAKING HIM TO LIVE WITH HER. PT EXPRESSED GRATITUDE. PT ALSO EXPRESSED GRATITUDE FOR RECEIVING CONTINUING PT EDUCATION BY THIS DIRECTOR OF MANUFACTURING OPERATIONS, PT REPORTS DISCUSSIONS HELPFUL WHEN HE MADE THE FINAL DESICION TO GO AHEAD WITH THE BKA SURGERY. "YOU SAVED MY LIFE" PT STATEMENT TO THIS DIRECTOR OF MANUFACTURING OPERATIONS. PT IS A/X4, PLEASANT AND COOPERATIVE WITH CARE. SPIRITUAL CARE CONSULT PUT IN PER PT REQUEST. BED AT THE LOWEST POSITION, CALL LIGHT WITHIN REACH. PT IS ABLE TO MAKE HIS NEEDS KNOW NA DIS COOPERATIVE WITH CARE.
[2024-09-11 05:37] LABS: BASOPHILS ABSOLUTE AUTO 0.05 K/mm3 (0.00-0.23); BASOPHILS PERCENT AUTO 1 % (0-2); EOSINOPHILS ABSOLUTE AUTO 0.22 K/mm3 (0.00-0.68); EOSINOPHILS PERCENT AUTO 2 % (0-6); Hematocrit 27.3 % (37.0-53.0); Hemoglobin 9.0 g/dL (13.5-17.5); IMMATURE GRAN ABSOLUTE AUTO 0.10 K/mm3 (0.00-0.10); IMMATURE GRAN PERCENT AUTO 1 % (0-1); LYMPHOCYTES ABSOLUTE AUTO 1.97 K/mm3 (0.84-5.20); LYMPHOCYTES PERCENT AUTO 19 % (21-46); MONOCYTES ABSOLUTE AUTO 1.40 K/mm3 (0.16-1.47); MONOCYTES PERCENT AUTO 13 % (4-13); Mean Corpuscular HGB Conc 33.0 g/dL (31.5-36.5); Mean Corpuscular Volume 90 fL (80-100); NEUTROPHILS ABSOLUTE AUTO 6.69 K/mm3 (1.96-9.15); NEUTROPHILS PERCENT AUTO 64 % (41-73); NRBC ABSOLUTE 0.00 K/mm3 (0.00-0.02); NRBC Auto 0.0 /100 WBC (0.0-0.2); Platelet Count 272 K/mm3 (150-400); RDW Coefficient Variation 14.2 % (11.7-14.2); RDW Standard Deviation 46.6 fL (35.1-46.3)
[2024-09-11 06:00] LABS: Alanine Aminotransfer (ALT/SGP 16.0 U/L (12-78); Albumin, Blood 1.4 g/dL (3.4-5.0); Albumin/Globulin Ratio 0.4 (0.8-1.8); Anion Gap 7.0 mmol/L (3-11); Aspartate Aminotrans (AST/SGOT 21.0 U/L (12-37); Bilirubin, Total 0.6 mg/dL (0.1-1.0); Blood Urea Nitrogen 16.0 mg/dL (8-24); CO2, Blood 30.0 mmol/L (21-32); Calcium, Blood 7.3 mg/dL (8.5-10.1); Chloride, Blood 103.0 mmol/L (98-108); Creatinine, Blood 1.11 mg/dL (0.60-1.20); Globulin, Blood 3.7 g/dL (2.2-4.0); Glucose, Blood 188.0 mg/dL (70-99); Potassium, Blood 3.8 mmol/L (3.5-5.5); Sodium, Blood 136.0 mmol/L (136-145); Total Protein, Blood 5.1 g/dL (6.4-8.2)
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
[2024-09-11] MEDS ORDERED: Bupivacaine 0.5% HCl 5 MG/ML 30MLVIAL ONE (15:37)
[2024-09-11] MEDS ORDERED: Bupivacaine HCl 0.25% 30 ML Injection ONE (15:39)
[2024-09-11] MEDS ORDERED: FentaNYL Citrate 50 MCG/ML 2 ML Injection ONE ×3 (15:41→18:07)
[2024-09-11] MEDS ORDERED: Midazolam HCl 1MG / ML 2ML Vial ONE (15:42)
--- NOTE | 2024-09-11 16:13 | NUR ---
History, Chart, Medications and Allergies reviewed before start of procedure. Patient confirms NPO status and agrees with scheduled surgery. Pre-Op teaching done. Pt verbalizes understanding.
--- NOTE | 2024-09-11 16:18 | NUR ---
PATIENT OFF FLOOR WITH SURGICAL STAFF
--- NOTE | 2024-09-11 16:45 | NUR ---
SHIFT SUMMARY PRIOR TO SURGERY PATIENT TEARFUL AND FEARFUL OF SURGERY, EXPRESSING THE DESIRE TO LEAVE AMA. POSSIBLE CONSEQUENCES WERE REINFORCED AND PAIN MEDS WERE ADMINISTERED, PATIENT MORE AGREEABLE TO STAY AND LESS LABILE. FAMILY AND PASTORAL CARE IN TODAY. REYNOLDS IN PLACE, DRAINING FREELY TO GRAVITY. ACCEPTING OF TURNS AND POSITIONS. CURRENTLY IN SURGICAL CARE OFF FLOOR.
[2024-09-11] MEDS ORDERED: ePHEDrine Sulfate 50 MG/ML 1ML Injection IV PRN (17:20)
[2024-09-11] MEDS ORDERED: FentaNYL Citrate 50 MCG/ML 2 ML Injection IV PRN ×2 (17:20)
[2024-09-11] MEDS ORDERED: HYDROmorphone HCl/Pf 1MG SYR IV PRN ×3 (17:20→20:00)
[2024-09-11] MEDS ORDERED: Ondansetron HCl 2 MG / ML 2ML Vial IV PRN (17:20)
[2024-09-11] MEDS ORDERED: HYDROmorphone HCl/Pf 1MG SYR ONE ×2 (17:57→18:07)
--- NOTE | 2024-09-11 19:28 | NUR ---
CONTACTED RN ACUTE , WHO OKAYED 0.5-1 MG DILAUDED Q2 PRN WITH STIPULATION THAT PAIN MEDS BECOME D'C AFTER ARRIVAL TO FLOOR. IF MEDS REMAIN ACTIVE, KEEP CURRENT REGIMEN.
[2024-09-11 20:57] LABS: Hematocrit 26.5 % (37.0-53.0); Hemoglobin 8.7 g/dL (13.5-17.5)
[2024-09-11] MEDS ORDERED: NS 1,000 ML IV ONE (21:25)
--- NOTE | 2024-09-11 21:38 | NUR ---
TRANSFER NOTE: PT BROUGHT UP FROM PACU BY THIS RN AND PACU NURSE. IN THE PACU, PACU NURSE STATES THAT HE HAS BEEN SATURATING THROUGH BANDAGES. DR SAMUEL SAW THE DRESSING, AND PLACED A SOCK AND WRAPPED TIGHTLY. PT IS WOOZY BUT RESPONSIVE. TRANSFERED BACK TO ROOM WITHOUT ISSUE.
--- NOTE | 2024-09-11 21:40 | NUR ---
NURSING NOTE: CONCERNS OVER BLOOD LOSS DUE TO SATURATED BED AND BANDAGE FROM PACU. NO NEURO CHANGES, REPEAT HH ORDERED FROM WHICH SEEMS NORMAL. BP HAS DROPPED SIGNIFICANTLY SINCE THEN, PT PULLED POWERGLIDE AND GOWN OFF. PROVIDER NOTIFIED, ORDERED FLUID BOLUS AND REPEAT VS. CONTINUING CARE
[2024-09-12] VITALS (24 sets, daily range): BP systolic 106–147; BP diastolic 66–88
[2024-09-12 04:25] LABS: BASOPHILS ABSOLUTE AUTO 0.06 K/mm3 (0.00-0.23); BASOPHILS PERCENT AUTO 0 % (0-2); EOSINOPHILS ABSOLUTE AUTO 0.00 K/mm3 (0.00-0.68); EOSINOPHILS PERCENT AUTO 0 % (0-6); Hematocrit 27.1 % (37.0-53.0); Hemoglobin 8.9 g/dL (13.5-17.5); IMMATURE GRAN ABSOLUTE AUTO 0.36 K/mm3 (0.00-0.10); IMMATURE GRAN PERCENT AUTO 2 % (0-1); LYMPHOCYTES ABSOLUTE AUTO 1.63 K/mm3 (0.84-5.20); LYMPHOCYTES PERCENT AUTO 8 % (21-46); MONOCYTES ABSOLUTE AUTO 0.35 K/mm3 (0.16-1.47); MONOCYTES PERCENT AUTO 2 % (4-13); Mean Corpuscular HGB Conc 32.8 g/dL (31.5-36.5); Mean Corpuscular Volume 92 fL (80-100); NEUTROPHILS ABSOLUTE AUTO 18.99 K/mm3 (1.96-9.15); NEUTROPHILS PERCENT AUTO 89 % (41-73); NRBC ABSOLUTE 0.00 K/mm3 (0.00-0.02); NRBC Auto 0.0 /100 WBC (0.0-0.2); Platelet Count 404 K/mm3 (150-400); RDW Coefficient Variation 14.4 % (11.7-14.2); RDW Standard Deviation 47.5 fL (35.1-46.3)
[2024-09-12 04:53] LABS: Alanine Aminotransfer (ALT/SGP 21.0 U/L (12-78); Albumin, Blood 1.6 g/dL (3.4-5.0); Albumin/Globulin Ratio 0.4 (0.8-1.8); Anion Gap 8.0 mmol/L (3-11); Aspartate Aminotrans (AST/SGOT 45.0 U/L (12-37); Bilirubin, Total 0.8 mg/dL (0.1-1.0); Blood Urea Nitrogen 18.0 mg/dL (8-24); CO2, Blood 29.0 mmol/L (21-32); Calcium, Blood 7.4 mg/dL (8.5-10.1); Chloride, Blood 104.0 mmol/L (98-108); Creatinine, Blood 1.0 mg/dL (0.60-1.20); Globulin, Blood 3.7 g/dL (2.2-4.0); Glucose, Blood 239.0 mg/dL (70-99); Potassium, Blood 4.7 mmol/L (3.5-5.5); Sodium, Blood 136.0 mmol/L (136-145); Total Protein, Blood 5.3 g/dL (6.4-8.2)
[2024-09-12] MEDS ORDERED: HYDROmorphone HCl/Pf 1MG SYR IV PRN ×2 (08:15→11:50)
[2024-09-12] MEDS ORDERED: OxyCODONE 10/Acetamin 325 TABLET PO ONE (09:00)
[2024-09-12] MEDS ORDERED: CefTRIAXone Sodium 2,000 MG in NS 100 ML IV SCH (09:00)
[2024-09-12] MEDS ORDERED: OxyCODONE 10/Acetamin 325 TABLET PO PRN (09:00)
[2024-09-12] MEDS ORDERED: FentaNYL Citrate 50 MCG/ML 2 ML Injection IV PRN ×2 (11:50→11:55)
[2024-09-12] MEDS ORDERED: Ondansetron HCl 2 MG / ML 2ML Vial IV PRN (11:50)
[2024-09-12] MEDS ORDERED: Albuterol 2.5 MG/3 ML VIAL INH PRN ×2 (11:50)
[2024-09-12] MEDS ORDERED: Midazolam HCl 1MG / ML 2ML Vial IV PRN (11:55)
[2024-09-12] MEDS ORDERED: Ampicillin Sod/Sulbactam Sod 3 GM in NS 100 ML IV SCH (12:00)
--- NOTE | 2024-09-12 12:50 | NUR ---
PT INTO SDS VIA [facility]. PT MOANING AND CRYING OUT IN PAIN. PT C/O SEVERE PAIN IN LEFT SHOULDER. DR. KAY AT . SHOULDER NOT DISLOCATED BUT PAIN IS RELIEVED BY ASSISTING PT TO HOLD ARM STRAIGHT UP OVER HEAD. Pre-Op teaching done. Pt verbalizes understanding. History, Chart, Medications and Allergies reviewed before start of procedure.Patient confirms NPO status and agrees with scheduled surgery.
--- NOTE | 2024-09-12 12:55 | NUR ---
PT HAS REYNOLDS CATH DRAINING JAMAL COLORED URINE
--- NOTE | 2024-09-12 12:56 | NUR ---
PT HAS 2 IV'S IN RIGHT ARM: 20G IN RFA + 22G IN WRIST
[2024-09-12] MEDS ORDERED: FentaNYL Citrate 50 MCG/ML 2 ML Injection ONE (13:15)
[2024-09-12] MEDS ORDERED: Ondansetron HCl 2 MG / ML 2ML Vial ONE (14:04)
[2024-09-12 17:08] LABS: Hematocrit 23.0 % (37.0-53.0); Hemoglobin 7.5 g/dL (13.5-17.5)
--- NOTE | 2024-09-12 19:17 | NUR ---
SHIFT SUMMARY: PT LETHARGIC THIS SHIFT. R. BKA COMPLETED YESTERDAY 09/11/2024. PT YELLING IN PAIN THIS AM. MEDICATED PER EMAR WITH GOOD RESULTS. PER DISTRICT SALES REPRESENTATIVE REPORT, FLAP REMAINED OPEN AFTER BKA D/T PURULENT DRAINAGE. DISTRICT SALES REPRESENTATIVE RN STATED SIGNIFICANT BLOOD LOSS PAPER CHUCKS WERE CHANGED MULTIPLE TIMES T/O EVENING. THIS RN SPOKE WITH DR. YANEZ AND DR. CHRISTIANSON REGARDING ISSUE. PT KEPT NPO BESIDES WATER AND TAKEN TO SURGERY AT APPROX 1230. PT ARRIVED BACK TO ROOM SOMNOLENT. PT ARRIVED WITH A WOUND VAC ON RIGHT STUMP. REPEAT H&H COMPLETED POST ARRIVAL BACK TO UNIT WITH A HGB RESULT OF 7.5. CALL LIGHT IN REACH. BED IN LOWEST POSITION. REPORT GIVEN TO DISTRICT SALES REPRESENTATIVE RN.
[2024-09-12] MEDS ORDERED: Insulin Glargine-Yfgn 100 Unit/mL 3 ML SYR SC SCH (21:00)
[2024-09-13] VITALS (12 sets, daily range): BP systolic 102–134; BP diastolic 50–71
[2024-09-13 04:57] LABS: BASOPHILS ABSOLUTE AUTO 0.02 K/mm3 (0.00-0.23); BASOPHILS PERCENT AUTO 0 % (0-2); EOSINOPHILS ABSOLUTE AUTO 0.01 K/mm3 (0.00-0.68); EOSINOPHILS PERCENT AUTO 0 % (0-6); Hematocrit 20.9 % (37.0-53.0); Hemoglobin 6.7 g/dL (13.5-17.5); IMMATURE GRAN ABSOLUTE AUTO 0.26 K/mm3 (0.00-0.10); IMMATURE GRAN PERCENT AUTO 1 % (0-1); LYMPHOCYTES ABSOLUTE AUTO 3.16 K/mm3 (0.84-5.20); LYMPHOCYTES PERCENT AUTO 17 % (21-46); MONOCYTES ABSOLUTE AUTO 2.40 K/mm3 (0.16-1.47); MONOCYTES PERCENT AUTO 13 % (4-13); Mean Corpuscular HGB Conc 32.1 g/dL (31.5-36.5); Mean Corpuscular Volume 92 fL (80-100); NEUTROPHILS ABSOLUTE AUTO 12.71 K/mm3 (1.96-9.15); NEUTROPHILS PERCENT AUTO 69 % (41-73); NRBC ABSOLUTE 0.06 K/mm3 (0.00-0.02); NRBC Auto 0.3 /100 WBC (0.0-0.2); Platelet Count 429 K/mm3 (150-400); RDW Coefficient Variation 14.8 % (11.7-14.2); RDW Standard Deviation 48.1 fL (35.1-46.3)
--- NOTE | 2024-09-13 04:57 | NUR ---
SHIFT SUMMARY A&OX3-4. ABLE TO MAKE ALL NEEDS KNOWN AND VERY PLEASANT. LETHARGIC BUT EASILY AWAKENS. LETHARGY APPEARS TO BE RELATED TO ANESTHESIA AND PAIN MEDS. PT HAS RIGHT BKA WITH WOUND VAC ATTACHED AND FUNCTIONING. NO DRAINAGE NOTED IN CANISTER. IV LACTATED RINGERS INFUSING AT 100 ML/HR PER EMAR. PT HAS HAD INTERMITENT PAIN AND IS MEDICATED PER EMAR WHICH APPEARS TO HAVE MANAGED HIS PAIN WELL HE HAS BEEN ABLE TO HAVE RESTFUL SLEEP. O2 BEING ADMINISERED VIA NC AT 2 LPM AND O2 SATS REMAINING IN HIGH 90'S. PT DENIES SOB. REYNOLDS CATHETER IS PATENT AND DRAINING. PT CURRENTLY RESTING IN BED AT LOWEST POSITION WITH CALL LIGHT WITHIN REACH.
[2024-09-13 05:17] LABS: Alanine Aminotransfer (ALT/SGP 23.0 U/L (12-78); Albumin, Blood 1.5 g/dL (3.4-5.0); Albumin/Globulin Ratio 0.4 (0.8-1.8); Anion Gap 7.0 mmol/L (3-11); Aspartate Aminotrans (AST/SGOT 43.0 U/L (12-37); Bilirubin, Total 0.5 mg/dL (0.1-1.0); Blood Urea Nitrogen 22.0 mg/dL (8-24); CO2, Blood 30.0 mmol/L (21-32); Calcium, Blood 7.1 mg/dL (8.5-10.1); Chloride, Blood 104.0 mmol/L (98-108); Creatinine, Blood 0.99 mg/dL (0.60-1.20); Globulin, Blood 3.5 g/dL (2.2-4.0); Glucose, Blood 183.0 mg/dL (70-99); Potassium, Blood 4.5 mmol/L (3.5-5.5); Sodium, Blood 136.0 mmol/L (136-145); Total Protein, Blood 5.0 g/dL (6.4-8.2)
--- NOTE | 2024-09-13 05:24 | NUR ---
CALL TO PROVIDER CALL TO PROVIDER TO INFORM OF HGB RESULTS OF 6.7. TELEPHONE ORDERS RECEIVED TO GIVE 1 UNIT OF PRBC.
[2024-09-13] MEDS ORDERED: NS 250 ML IV SCH (05:35)
--- NOTE | 2024-09-13 06:28 | NUR ---
CALL TO PROVIDER PT HAS NEW ONSET INCREASED SWELLING IN SCROTUM THAT IS THE SIZE OF A GRAPEFRUIT AND TENDER TO THE TOUCH. REYNOLDS CATHETER PRESENT AND APPEARS TO BE DRAINING BUT MINIMAL. CATHETER FLUSHED BUT COULD NOT ASPIRATE ANYTHING. CATHETER REPOSITIONED FOR COMFORT. ALSO NOTED NEW 2+ PITTING EDEMA TO LEFT ARM, THIGH AND LOWER EXTREMITY. THIS RN CALLED DR. CHOI AND STATES WILL ASSESS TODAY AND TO CONTINUE TO MONITOR AT THIS TIME. WILL GIVE REPORT TO ONCOMING NURSE.
--- NOTE | 2024-09-13 11:33 | NUR ---
Spiritual care visit conducted. The patient is sitting up in bed and resting. He easily awakens to the sound of his name. We discuss his emotional state as he processes the amputation (which is good today as he states, "I'm so glad I made it through it.") He becomes tearful as he shares personal stories about [place] and his role in the conflict. He says that all that is happening to him mediacally is a result of his sins. We unpack that statement and explore his sikhism beliefs and his destructive thoughts about who he is and what he is worthy of. We explored forgiveness and self-care. I heard confession, normalized his fears and feelings, and provided spiritual guidance, theological insights, and prayer. The patient responded well and showed signs of catharsis and greater peace.
[2024-09-13 11:46] LABS: Hematocrit 19.3 % (37.0-53.0); Hemoglobin 6.3 g/dL (13.5-17.5)
--- NOTE | 2024-09-13 16:30 | NUR ---
BLOOD TRANSFUSION IS COMPLETED- PT BP HAS BEEN TRENDING DOWN THE TRANSFUSION CONTINUED, LIKELY D/T PAIN MEDICATION RATHER THAN THE TRANSFUSION. PT RECIEVED IV LASIX PRIOR TO THE 1 UNIT OF PRBC'S, HGB WAS LOWER ON RECHECK, SO DR CHRISTIANSON CALLED THIS RN AND ORDERED THE TRANSFUSION TO BE GIVEN.
[2024-09-13 18:34] LABS: Hematocrit 23.0 % (37.0-53.0); Hemoglobin 7.6 g/dL (13.5-17.5)
[2024-09-13 19:00] LABS: Anion Gap 4.0 mmol/L (3-11); Blood Urea Nitrogen 22.0 mg/dL (8-24); CO2, Blood 32.0 mmol/L (21-32); Calcium, Blood 7.4 mg/dL (8.5-10.1); Chloride, Blood 101.0 mmol/L (98-108); Creatinine, Blood 0.99 mg/dL (0.60-1.20); Glucose, Blood 183.0 mg/dL (70-99); Potassium, Blood 4.4 mmol/L (3.5-5.5); Sodium, Blood 133.0 mmol/L (136-145)
--- NOTE | 2024-09-13 20:08 | NUR ---
SHIFT SUMMARY- PT IN BED, Q2 TURN HE WILL ALLOW, PT TENDS TO MIGRATE BACK TO THE SAME POSITION, NO MATTER WHERE HE IS MOVED TO. THE SWOLLEN SCROTUM SEEMS TO BE THE LEADING CAUSE FOR HIS MOVEMENT. MD AWARE AND LASIX WAS ORDERED, IVF STOPPED THIS AM PER MD ORDER. BEDSIDE REPORT COMPLETED WITH NIGHT RN, PT IN TEARS CRYING, WHEN STAFF ASKED WHAT WAS WRONG THE PT STATED HE JUST "LOST HIS LITTLE DOG." HE HAD JUST BEEN ON THE PHONE WITH HIS FAMILY MEMBER AND RECIEVED THE NEWS. NIGHT RN IS AWARE THE PT ALSO IS REQUESTING A DOSE OF PAIN MEDS AT SHIFT CHANGE. CATH CARE WAS COMPLETED TODAY.
[2024-09-13] MEDS ORDERED: Insulin Glargine-Yfgn 100 Unit/mL 3 ML SYR SC SCH (21:00)
[2024-09-14] VITALS (7 sets, daily range): BP systolic 89–115; BP diastolic 52–67
[2024-09-14 04:45] LABS: BASOPHILS ABSOLUTE AUTO 0.04 K/mm3 (0.00-0.23); BASOPHILS PERCENT AUTO 0 % (0-2); EOSINOPHILS ABSOLUTE AUTO 0.13 K/mm3 (0.00-0.68); EOSINOPHILS PERCENT AUTO 1 % (0-6); Hematocrit 20.4 % (37.0-53.0); Hemoglobin 6.8 g/dL (13.5-17.5); IMMATURE GRAN ABSOLUTE AUTO 0.27 K/mm3 (0.00-0.10); IMMATURE GRAN PERCENT AUTO 2 % (0-1); LYMPHOCYTES ABSOLUTE AUTO 3.28 K/mm3 (0.84-5.20); LYMPHOCYTES PERCENT AUTO 24 % (21-46); MONOCYTES ABSOLUTE AUTO 1.58 K/mm3 (0.16-1.47); MONOCYTES PERCENT AUTO 12 % (4-13); Mean Corpuscular HGB Conc 33.3 g/dL (31.5-36.5); Mean Corpuscular Volume 92 fL (80-100); NEUTROPHILS ABSOLUTE AUTO 8.34 K/mm3 (1.96-9.15); NEUTROPHILS PERCENT AUTO 61 % (41-73); NRBC ABSOLUTE 0.24 K/mm3 (0.00-0.02); NRBC Auto 1.8 /100 WBC (0.0-0.2); Platelet Count 347 K/mm3 (150-400); RDW Coefficient Variation 15.2 % (11.7-14.2); RDW Standard Deviation 49.3 fL (35.1-46.3)
[2024-09-14 05:02] LABS: Alanine Aminotransfer (ALT/SGP 20.0 U/L (12-78); Albumin, Blood 1.4 g/dL (3.4-5.0); Albumin/Globulin Ratio 0.4 (0.8-1.8); Anion Gap 4.0 mmol/L (3-11); Aspartate Aminotrans (AST/SGOT 34.0 U/L (12-37); Bilirubin, Total 0.5 mg/dL (0.1-1.0); Blood Urea Nitrogen 24.0 mg/dL (8-24); CO2, Blood 31.0 mmol/L (21-32); Calcium, Blood 6.8 mg/dL (8.5-10.1); Chloride, Blood 102.0 mmol/L (98-108); Creatinine, Blood 0.95 mg/dL (0.60-1.20); Globulin, Blood 3.3 g/dL (2.2-4.0); Glucose, Blood 148.0 mg/dL (70-99); Potassium, Blood 4.2 mmol/L (3.5-5.5); Sodium, Blood 133.0 mmol/L (136-145); Total Protein, Blood 4.7 g/dL (6.4-8.2)
[2024-09-14] MEDS ORDERED: NS 250 ML IV SCH (05:15)
--- NOTE | 2024-09-14 06:45 | NUR ---
SHIFT SUMMARY: Pt is admitted for LLE cellulitis and is a full code. Is alert and able to make needs known. ADLs have been 1p. On contact ISO for MRSA. Pain has been managed with PRN medication. IV to right forearm is patent with dressing that is CDI. has been wearing 2LPM via PRN to maintain SPO2 greater than 90%. Yeh in place and draining clear yellow urine. Wound vac is patent with dressing CDI. HGB was 6.8 reported to MD. he gave order for 1u PRBC. that was started about 0605. PT stated that he was a little short of breath and was somewhat lethargic. After 15 min he stated that he was short of breath. VS taken and lungs were clear. Nothing abnormal found.
[2024-09-14] MEDS ORDERED: Furosemide 10 MG / ML 2ML Vial IV SCH (08:00)
--- NOTE | 2024-09-14 11:48 | NUR ---
Patient is admittedly feeling down today. 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 We explore sources of meaning and purpose, new ways to frame the events in his life and the resources of family and friends that he has in place. Patient also stated that a medium chocolate shake would do him good. I provided prayer, then drove to [employer] and bought a medium chocolate shake and brought it to him. The patient voiced great appreciation and was tearful as he did so. Spiritual care will remain available.
[2024-09-14 14:30] LABS: Anion Gap 5.0 mmol/L (3-11); Blood Urea Nitrogen 23.0 mg/dL (8-24); CO2, Blood 32.0 mmol/L (21-32); Calcium, Blood 6.9 mg/dL (8.5-10.1); Chloride, Blood 101.0 mmol/L (98-108); Creatinine, Blood 0.98 mg/dL (0.60-1.20); Glucose, Blood 235.0 mg/dL (70-99); Potassium, Blood 3.8 mmol/L (3.5-5.5); Sodium, Blood 134.0 mmol/L (136-145)
[2024-09-14 17:32] LABS: Hematocrit 24.4 % (37.0-53.0); Hemoglobin 8.0 g/dL (13.5-17.5)
--- NOTE | 2024-09-14 19:55 | NUR ---
SHIFT SUMMARY- PT ALERT AND ORIENTED, HE RECIEVED 1 UNIT PRBC. IV LASIX 60MG THIS AM AND THEN 40 IV BID DOSE GIVEN THIS EVENING. PT WORKED THIS EVENING WITH PHYSICAL THERAPY. HE HAD LOW BP'S. DR YANEZ AND SCHUYLER ARE AWARE. ORDER TO GIVE IV LASIX FOR SBP OVER 90. PT LAST HGB LEVEL WAS 8.0. CALLED DR YANEZ WITH THE RESULT THERE WAS A DELAY IN THE LAB. PT IN BED, CALL LIGHT IN REACH NO S&S OF DISTRESS NOTED AT THE TIME OF SHIFT CHANGE.
[2024-09-14] MEDS ORDERED: Arginine/Glutamine/Calcium Hmb 1 Packet PO SCH (21:00)
[2024-09-15 04:13] VITALS: BP 109/57
[2024-09-15] MEDS ORDERED: FentaNYL Citrate 50 MCG/ML 2 ML Injection IV PRN (04:30)
--- NOTE | 2024-09-15 06:05 | NUR ---
SHIFT SUMMARY: Pt is admitted for LLE cellulitis and is a full code. Is alert and able to make needs known. ADLs have been 1p. On contact ISO for MRSA. Pain has been managed with PRN medication. IV to right forearm is patent with dressing that is CDI. Yeh in place and draining clear yellow urine. Wound vac is patent with dressing CDI. infection prevention notified this LN that PT does not have to be in ISO towards the end of shift. Rationale cultures were negative and history of MRSA does not meet the time line guidance.
[2024-09-15 08:08] VITALS: BP 105/66
[2024-09-15] MEDS ORDERED: Zinc Sulfate 220 MG Cap (Provides 50MG) PO SCH (09:00)
[2024-09-15] MEDS ORDERED: Multivitamins-Minerals Liquid 15 ML Oral Syringe PO SCH (09:00)
[2024-09-15] MEDS ORDERED: Ipratropium/Albuterol SulF 2.5-0.5MG/3 ML Amp INH SCH (10:05)
[2024-09-15 18:56] LABS: Hematocrit 26.7 % (37.0-53.0); Hemoglobin 8.7 g/dL (13.5-17.5)
--- NOTE | 2024-09-15 19:55 | NUR ---
SHIFT SUMMARY CLIENT AOX4. MEDICATION COMPLIANT. C/O PAIN X3 THIS SHIFT. MEDICATED PER EMAR. WOUND VAC REMAINS IN PLACE. RECEIVED TELEPHONE ORDER TO CHANGE VAC EVERY WEDNESDAY, WEDNESDAY, AND WEDNESDAY. SEEN BY RESP THERAPY. BED IS LOW POSITION AND CALL LIGHT IS WITHIN REACH
[2024-09-15 20:13] VITALS: BP 96/54
[2024-09-16 05:03] LABS: BASOPHILS ABSOLUTE AUTO 0.04 K/mm3 (0.00-0.23); BASOPHILS PERCENT AUTO 1 % (0-2); EOSINOPHILS ABSOLUTE AUTO 0.10 K/mm3 (0.00-0.68); EOSINOPHILS PERCENT AUTO 1 % (0-6); Hematocrit 23.8 % (37.0-53.0); Hemoglobin 7.8 g/dL (13.5-17.5); IMMATURE GRAN ABSOLUTE AUTO 0.10 K/mm3 (0.00-0.10); IMMATURE GRAN PERCENT AUTO 1 % (0-1); LYMPHOCYTES ABSOLUTE AUTO 1.81 K/mm3 (0.84-5.20); LYMPHOCYTES PERCENT AUTO 24 % (21-46); MONOCYTES ABSOLUTE AUTO 0.84 K/mm3 (0.16-1.47); MONOCYTES PERCENT AUTO 11 % (4-13); Mean Corpuscular HGB Conc 32.8 g/dL (31.5-36.5); Mean Corpuscular Volume 93 fL (80-100); NEUTROPHILS ABSOLUTE AUTO 4.65 K/mm3 (1.96-9.15); NEUTROPHILS PERCENT AUTO 62 % (41-73); NRBC ABSOLUTE 0.03 K/mm3 (0.00-0.02); NRBC Auto 0.4 /100 WBC (0.0-0.2); Platelet Count 294 K/mm3 (150-400); RDW Coefficient Variation 15.9 % (11.7-14.2); RDW Standard Deviation 49.1 fL (35.1-46.3)
[2024-09-16 05:10] VITALS: BP 106/58
[2024-09-16 05:25] LABS: Anion Gap 6.0 mmol/L (3-11); Blood Urea Nitrogen 23.0 mg/dL (8-24); CO2, Blood 33.0 mmol/L (21-32); Calcium, Blood 7.2 mg/dL (8.5-10.1); Chloride, Blood 99.0 mmol/L (98-108); Creatinine, Blood 0.89 mg/dL (0.60-1.20); Glucose, Blood 256.0 mg/dL (70-99); Potassium, Blood 3.9 mmol/L (3.5-5.5); Sodium, Blood 134.0 mmol/L (136-145)
--- NOTE | 2024-09-16 05:54 | NUR ---
SHIFT SUMMARY PT ALERT AND ORIENTED TIMES 4. PT ADMITTED FOR RIGHT LOWER EXTREMITY CELLULITIS. PT HAD RBKA PROCEEDURE. PT HAS REYNOLDS CATH, DRAINING TO GRAVITY, YELLOW STRAW COLORED URINE. PT HAS WOUND VAC IN PLACE WITH WOUND ORDERS. PT IS COOPERATIVE WITH CARE. CALL LIGHT WITHIN REACH, RAILS TIMES 2, BED IN LOW POSITION.
[2024-09-16 07:58] VITALS: BP 107/75
[2024-09-16 10:03] LABS: Hematocrit 26.0 % (37.0-53.0); Hemoglobin 8.4 g/dL (13.5-17.5)
--- NOTE | 2024-09-16 14:00 | NUR ---
1400- THIS RN CALLED MD YAN TO CLARIFY IF PT WAS TO STILL HAVE HIS WOUND VAC IN PLACE. STATED YES AND EXPLAINED THAT THE WOUND VAC IS SUPPOSED TO STAY THROUGH THE AND IT WILL BE CHANGED WEDNESDAY AGAIN. THIS RN INFORMED MG THAT IT WAS UNSURE IF PT HAD HAD WOUND VAC CHANGED YESTERDAY (Wednesday09/15/24). MD CRISTINA.
--- NOTE | 2024-09-16 16:23 | NUR ---
ASSUMED CARE. PATIENT IN BED A/X4. WOUND VAC IN PLACE AND FUNCTIONING. REPORTS PAIN 8/10 TO STUMP, REQUESTING PAIN MEDS.
[2024-09-16 19:45] VITALS: BP 108/59
[2024-09-17 04:10] VITALS: BP 93/64
[2024-09-17 04:58] LABS: BASOPHILS ABSOLUTE AUTO 0.03 K/mm3 (0.00-0.23); BASOPHILS PERCENT AUTO 0 % (0-2); EOSINOPHILS ABSOLUTE AUTO 0.19 K/mm3 (0.00-0.68); EOSINOPHILS PERCENT AUTO 3 % (0-6); Hematocrit 23.6 % (37.0-53.0); Hemoglobin 7.6 g/dL (13.5-17.5); IMMATURE GRAN ABSOLUTE AUTO 0.07 K/mm3 (0.00-0.10); IMMATURE GRAN PERCENT AUTO 1 % (0-1); LYMPHOCYTES ABSOLUTE AUTO 1.79 K/mm3 (0.84-5.20); LYMPHOCYTES PERCENT AUTO 24 % (21-46); MONOCYTES ABSOLUTE AUTO 1.05 K/mm3 (0.16-1.47); MONOCYTES PERCENT AUTO 14 % (4-13); Mean Corpuscular HGB Conc 32.2 g/dL (31.5-36.5); Mean Corpuscular Volume 94 fL (80-100); NEUTROPHILS ABSOLUTE AUTO 4.38 K/mm3 (1.96-9.15); NEUTROPHILS PERCENT AUTO 58 % (41-73); NRBC ABSOLUTE 0.00 K/mm3 (0.00-0.02); NRBC Auto 0.0 /100 WBC (0.0-0.2); Platelet Count 268 K/mm3 (150-400); RDW Coefficient Variation 16.1 % (11.7-14.2); RDW Standard Deviation 51.6 fL (35.1-46.3)
[2024-09-17 05:22] LABS: Alanine Aminotransfer (ALT/SGP 19.0 U/L (12-78); Albumin, Blood 1.6 g/dL (3.4-5.0); Albumin/Globulin Ratio 0.5 (0.8-1.8); Anion Gap 5.0 mmol/L (3-11); Aspartate Aminotrans (AST/SGOT 24.0 U/L (12-37); Bilirubin, Total 0.6 mg/dL (0.1-1.0); Blood Urea Nitrogen 23.0 mg/dL (8-24); CO2, Blood 33.0 mmol/L (21-32); Calcium, Blood 7.2 mg/dL (8.5-10.1); Chloride, Blood 99.0 mmol/L (98-108); Creatinine, Blood 0.88 mg/dL (0.60-1.20); Globulin, Blood 3.4 g/dL (2.2-4.0); Glucose, Blood 173.0 mg/dL (70-99); Potassium, Blood 3.9 mmol/L (3.5-5.5); Sodium, Blood 133.0 mmol/L (136-145); Total Protein, Blood 5.0 g/dL (6.4-8.2)
[2024-09-17 07:54] VITALS: BP 106/58
[2024-09-17 13:09] LABS: Hematocrit 26.7 % (37.0-53.0); Hemoglobin 8.5 g/dL (13.5-17.5)
--- NOTE | 2024-09-17 13:15 | NUR ---
1200- THIS RN SPOKE WITH MD YAN FACE TO FACE TO DISCUSS WOUND VAC THERAPY. MD TO SPEAK WITH MD KAY. MD KAY TEXT MD YAN AND GAVE WRITTEN ORDER TO DC WOUND VAC THERAPY AND PLACE "NORMAL" RESIDUAL LIMB DRESSING WITH COMPRESSION DRESSING.
[2024-09-17 15:54] VITALS: BP 104/67
--- NOTE | 2024-09-17 18:29 | NUR ---
SUMMARY- AAOX4. PT ON RA. BESREST. WOUND VAC REMOVED THIS SHIFT AND WOUND CARE ORDERS PERFORMED PER RAHUL. PAIN WELL CONTROLLED WITH EMAR PAIN MEDS. PT TURNED Q 2 HRS.
[2024-09-17 19:19] VITALS: BP 100/52
[2024-09-17] MEDS ORDERED: Ketorolac Tromethamine 30mg Vial IV PRN (21:40)
[2024-09-18 04:28] VITALS: BP 95/58
--- NOTE | 2024-09-18 06:35 | NUR ---
SHIFT SUMMARY; PATIENT SLEPT IN LONG INTERVALS, STATES HE DOES NOT USE ANY INSULIN PEN, THEY ARE STOLEN FROM HIM ON THE STREET. CALLED HOSPITALIST AND CHANGED HIS MEDS AROUND. TEARFUL OFF AND ON D/T HIS SON AND SO HAS HIS DOG. WILL HAVE MOLINA COME BY PER PT REQUEST. SOFT BP'S. DID NOT GET UP TONIGHT.
[2024-09-18 08:00] VITALS: BP 106/67
--- NOTE | 2024-09-18 10:30 | NUR ---
"Spiritual care | Pt. and Nurse Request Pt. is awake in bed when he welcomed my visit. Pt. verbalized disappointment that Rand Maker Ivan was not available but through the process of facilitating a life review a measure of rapport is established. Pt. verbalized of the significant and recent losses in his life including his leg, his dog, and his son. Listen with emapthy and a calming presence. Pt. verbalized that his objective is to be able to make it to his sisters house in the [place] area where he could be supported by Home Health. The Pt. verbalized gratitude for the spiritual care supoprt and took my hand as I prayed for him. Will remain available to the Pt. this week."
[2024-09-18 13:47] LABS: Anion Gap 8.0 mmol/L (3-11); Blood Urea Nitrogen 34.0 mg/dL (8-24); CO2, Blood 33.0 mmol/L (21-32); Calcium, Blood 7.8 mg/dL (8.5-10.1); Chloride, Blood 98.0 mmol/L (98-108); Creatinine, Blood 0.96 mg/dL (0.60-1.20); Glucose, Blood 178.0 mg/dL (70-99); Potassium, Blood 3.9 mmol/L (3.5-5.5); Sodium, Blood 135.0 mmol/L (136-145)
[2024-09-18 16:56] VITALS: BP 106/66
--- NOTE | 2024-09-18 19:41 | NUR ---
SUMMARY- AAOX4. X1 ASSIST TO RECLINER WITH WALKER/GAIT BELT-STAND PIVOT. PT ON RA. NO ACUTE EVENTS THIS SHIFT. PAIN WELL CONTROLLED WITH EMAR PAIN MEDS. MD KAY CALLED THIS EVENING AND CLARIFIED FREQUENCY OF WOUND CARE ORDERS. MD KAY STATED EVERY OTHER DAY. THIS RN CHANGED DRESSING 09/17/24; DRESSING TO BE CHANGED PER ORDERS TOMORROW 09/19/24.
[2024-09-18 21:02] VITALS: BP 106/61
--- NOTE | 2024-09-19 03:58 | NUR ---
SHIFT SUMMARY PATIENT IS ALERT AND ORIENTED. PATIENT HAS HAD NO ACUTE EVENTS THIS SHIFT. VITAL SIGNS REVIEWED. PATIENT HAS REPORTED PAIN THIS SHIFT AND MEDICATED PER EMAR. PATIENT HAS NO COMPLAINTS OF SOB, NAUSEA OR VOMITTING THIS SHIFT. REYNOLDS IS PATENT AND DRAINING JAMAL URINE. DRESSING CHANGE DONE ON DAY SHIFT AND TO BE DONE 09/19. PATIENT HAS BEEN SLEEPING IN CHAIR MOST OF SHIFT.
[2024-09-19 05:02] LABS: Hematocrit 24.1 % (37.0-53.0); Hemoglobin 7.7 g/dL (13.5-17.5)
[2024-09-19 05:39] LABS: Alanine Aminotransfer (ALT/SGP 20.0 U/L (12-78); Albumin, Blood 1.7 g/dL (3.4-5.0); Albumin/Globulin Ratio 0.5 (0.8-1.8); Anion Gap 6.0 mmol/L (3-11); Aspartate Aminotrans (AST/SGOT 25.0 U/L (12-37); Bilirubin, Total 0.4 mg/dL (0.1-1.0); Blood Urea Nitrogen 37.0 mg/dL (8-24); CO2, Blood 33.0 mmol/L (21-32); Calcium, Blood 7.6 mg/dL (8.5-10.1); Chloride, Blood 100.0 mmol/L (98-108); Creatinine, Blood 1.0 mg/dL (0.60-1.20); Globulin, Blood 3.3 g/dL (2.2-4.0); Glucose, Blood 173.0 mg/dL (70-99); Potassium, Blood 3.8 mmol/L (3.5-5.5); Sodium, Blood 135.0 mmol/L (136-145); Total Protein, Blood 5.0 g/dL (6.4-8.2)
[2024-09-19 07:18] VITALS: BP 104/68
--- NOTE | 2024-09-19 12:48 | NUR ---
ASSUMED CARE OF PT. A/O X 4 VERY DROWSEY BUT AROUSABLE NO C/O PAIN NO DISTRESS. RIGHT STUMP UP ON PILLOW.. 1000 MD IN WITH PT, PT CLAIM 12/10 PAIN TO RIGHT LEG. PT MEDICATED PER APR. DRESSING CHANGE DONE TO RIGHT STUMP. CLEANSED WOUND COVERED WITH ZEROFORM, 4X4 AND WRAPED WITH LAMBS WOOL DRESSING COVERED WITH STUMP SOCK. PT STATING PAIN IS MUCH BETTER, MORE AWAKE AND IN BETTER MOOD. CALL LIGHT WITHIN REACH.
[2024-09-19 15:15] VITALS: BP 99/64
--- NOTE | 2024-09-19 16:23 | NUR ---
Pt. is awake and sitting up in a chair when he genuinely welcoms my visit. Pt. is pleasant but becomes more unsettled as we consider that his family seems to have stopped answering his calls. The Pt. describes his situation as feelin glost and forgotten. This railroad track mechanic seeks to encourage the Pt. with the things of paresh that once meant so much to him. The Pt. displays evidence of agreement, but still is not clear on where his next place of care will be. Listen with empathy and interest. Consider many matters of paresh and belief. pt. displays evidence of wanting the best but verbalizes that he feels alone. prayed with the Pt. Pt. verbalized gratitude for the spiritual care visits.
--- NOTE | 2024-09-19 19:22 | NUR ---
NO CHANGE IN CONDITION CALL LIGHT WITHIN REACH
[2024-09-19 20:11] VITALS: BP 110/76
[2024-09-20 04:22] VITALS: BP 111/68
[2024-09-20 04:51] LABS: BASOPHILS ABSOLUTE AUTO 0.04 K/mm3 (0.00-0.23); BASOPHILS PERCENT AUTO 1 % (0-2); EOSINOPHILS ABSOLUTE AUTO 0.13 K/mm3 (0.00-0.68); EOSINOPHILS PERCENT AUTO 2 % (0-6); Hematocrit 25.7 % (37.0-53.0); Hemoglobin 8.1 g/dL (13.5-17.5); IMMATURE GRAN ABSOLUTE AUTO 0.03 K/mm3 (0.00-0.10); IMMATURE GRAN PERCENT AUTO 1 % (0-1); LYMPHOCYTES ABSOLUTE AUTO 1.27 K/mm3 (0.84-5.20); LYMPHOCYTES PERCENT AUTO 19 % (21-46); MONOCYTES ABSOLUTE AUTO 1.04 K/mm3 (0.16-1.47); MONOCYTES PERCENT AUTO 16 % (4-13); Mean Corpuscular HGB Conc 31.5 g/dL (31.5-36.5); Mean Corpuscular Volume 94 fL (80-100); NEUTROPHILS ABSOLUTE AUTO 4.03 K/mm3 (1.96-9.15); NEUTROPHILS PERCENT AUTO 62 % (41-73); NRBC ABSOLUTE 0.00 K/mm3 (0.00-0.02); NRBC Auto 0.0 /100 WBC (0.0-0.2); Platelet Count 220 K/mm3 (150-400); RDW Coefficient Variation 15.7 % (11.7-14.2); RDW Standard Deviation 53.0 fL (35.1-46.3)
[2024-09-20 05:09] LABS: Alanine Aminotransfer (ALT/SGP 21.0 U/L (12-78); Albumin, Blood 1.7 g/dL (3.4-5.0); Albumin/Globulin Ratio 0.5 (0.8-1.8); Anion Gap 6.0 mmol/L (3-11); Aspartate Aminotrans (AST/SGOT 29.0 U/L (12-37); Bilirubin, Total 0.4 mg/dL (0.1-1.0); Blood Urea Nitrogen 34.0 mg/dL (8-24); CO2, Blood 33.0 mmol/L (21-32); Calcium, Blood 7.7 mg/dL (8.5-10.1); Chloride, Blood 101.0 mmol/L (98-108); Creatinine, Blood 0.93 mg/dL (0.60-1.20); Globulin, Blood 3.2 g/dL (2.2-4.0); Glucose, Blood 127.0 mg/dL (70-99); Potassium, Blood 4.2 mmol/L (3.5-5.5); Sodium, Blood 136.0 mmol/L (136-145); Total Protein, Blood 4.9 g/dL (6.4-8.2)
--- NOTE | 2024-09-20 05:32 | NUR ---
SHIFT SUMMARY PT ALERT AND ORIENTED TIMES 4. PT ADMITTED FOR RIGHT LOWER EXTREMITY CELLULITIS. PT HAD RBKA PROCEEDURE. PT HAS REYNOLDS CATH, DRAINING TO GRAVITY, YELLOW STRAW COLORED URINE. PT HAS WOUND VAC IN PLACE WITH WOUND ORDERS. PT HAD BM DURING SHIFT. PT IS COOPERATIVE WITH CARE. CALL LIGHT WITHIN REACH, RAILS TIMES 2, BED IN LOW POSITION.
[2024-09-20 07:23] VITALS: BP 98/54
[2024-09-20 16:09] VITALS: BP 107/69
--- NOTE | 2024-09-20 18:06 | NUR ---
SHIFT SUMMARY: PT MEDICATED PER EMAR. PT UP TO CHAIR FOR BREAKFAST. PT HAS REYNOLDS DRAINING WELL AND HANGING TO GRAVITY BELOW THE BLADDER. PT TEARFUL TODAY. NO ACUTE CHANGES.
[2024-09-20 20:48] VITALS: BP 103/69
[2024-09-21 04:36] VITALS: BP 112/67
[2024-09-21 04:58] LABS: BASOPHILS ABSOLUTE AUTO 0.04 K/mm3 (0.00-0.23); BASOPHILS PERCENT AUTO 1 % (0-2); EOSINOPHILS ABSOLUTE AUTO 0.09 K/mm3 (0.00-0.68); EOSINOPHILS PERCENT AUTO 1 % (0-6); Hematocrit 25.0 % (37.0-53.0); Hemoglobin 7.8 g/dL (13.5-17.5); IMMATURE GRAN ABSOLUTE AUTO 0.03 K/mm3 (0.00-0.10); IMMATURE GRAN PERCENT AUTO 0 % (0-1); LYMPHOCYTES ABSOLUTE AUTO 1.31 K/mm3 (0.84-5.20); LYMPHOCYTES PERCENT AUTO 19 % (21-46); MONOCYTES ABSOLUTE AUTO 0.97 K/mm3 (0.16-1.47); MONOCYTES PERCENT AUTO 14 % (4-13); Mean Corpuscular HGB Conc 31.2 g/dL (31.5-36.5); Mean Corpuscular Volume 94 fL (80-100); NEUTROPHILS ABSOLUTE AUTO 4.35 K/mm3 (1.96-9.15); NEUTROPHILS PERCENT AUTO 64 % (41-73); NRBC ABSOLUTE 0.00 K/mm3 (0.00-0.02); NRBC Auto 0.0 /100 WBC (0.0-0.2); Platelet Count 201 K/mm3 (150-400); RDW Coefficient Variation 15.6 % (11.7-14.2); RDW Standard Deviation 53.1 fL (35.1-46.3)
[2024-09-21 05:30] LABS: Alanine Aminotransfer (ALT/SGP 21.0 U/L (12-78); Albumin, Blood 1.6 g/dL (3.4-5.0); Albumin/Globulin Ratio 0.5 (0.8-1.8); Anion Gap 5.0 mmol/L (3-11); Aspartate Aminotrans (AST/SGOT 29.0 U/L (12-37); Bilirubin, Total 0.5 mg/dL (0.1-1.0); Blood Urea Nitrogen 36.0 mg/dL (8-24); CO2, Blood 32.0 mmol/L (21-32); Calcium, Blood 7.4 mg/dL (8.5-10.1); Chloride, Blood 101.0 mmol/L (98-108); Creatinine, Blood 0.99 mg/dL (0.60-1.20); Globulin, Blood 3.5 g/dL (2.2-4.0); Glucose, Blood 159.0 mg/dL (70-99); Potassium, Blood 4.3 mmol/L (3.5-5.5); Sodium, Blood 134.0 mmol/L (136-145); Total Protein, Blood 5.1 g/dL (6.4-8.2)
--- NOTE | 2024-09-21 05:40 | NUR ---
SHIFT SUMMARY PT ALERT AND ORIENTED TIMES 4. PT ADMITTED FOR RIGHT LOWER EXTREMITY CELLULITIS. PT HAD RBKA PROCEEDURE. PT HAS REYNOLDS CATH, DRAINING TO GRAVITY, YELLOW STRAW COLORED URINE. WOUND VAC HAS BEEN DC D. PT IS CALL LIGHT APPROPRIATE, COOPERATIVE WITH CARE. CALL LIGHT WITHIN REACH, RAILS TIMES 2, BED IN LOW POSITION.
[2024-09-21 08:08] LABS: Ferritin, Serum 168.0 ng/mL (26-388); Total Iron Binding Capacity 259.0 ug/dL (250-450)
--- NOTE | 2024-09-21 08:59 | NUR ---
Pt. is awake in bed when he welcomes my visit. Pt. is pleasant, and displays a playful demeanor. As I facilitated an update of his prognosis, the Pts. countenance sagged. Listened with emapthy and a calming presence. Pastoral encouragement is given. Pt. displayed evidence of of balancing hope with the difficulty of his discharge placement. Through theraputic listening and communicating respect for the Pts. character, the Pts. mood became more encouraged. Prayed with the Pt. Pt. verbalized gratitude for the spiritual care visit and prayer.
[2024-09-21] MEDS ORDERED: Multivitamins/Minerals 1 Tab PO SCH (09:00)
[2024-09-21 11:03] LABS: IMMATURE RETIC FRACTION 19.2 % (2.3-16.0); RETIC HGB EQUIVALENT 29.9 pg (28.20-36.60); RETICULOCYTE ABSOLUTE 0.1914 M/mm3 (0.0200-0.1100); RETICULOCYTE COUNT PERCENT 7.39 % (0.50-2.50)
[2024-09-21 16:00] VITALS: BP 97/76
[2024-09-22 04:18] VITALS: BP 118/61
--- NOTE | 2024-09-22 06:17 | NUR ---
SHIFT SUMMARY PT ALERT AND ORIENTED TIMES 4. PT ADMITTED FOR RIGHT LOWER EXTREMITY CELLULITIS. PT HAD RBKA PROCEEDURE. PT HAS REYNOLDS CATH, DRAINING TO GRAVITY, YELLOW STRAW COLORED URINE. WOUND VAC HAS BEEN DC D. PT WAS TAKEN AROUND UNIT BY WHEELCHAIR AND APPEARED TO ENJOY GETTING OUT OF PT ROOM FOR A CHANGE. PT VERY HAPPY TODAY TO FIND OUT THAT HIS SON DID NOT FROM DRUG OVERDOSE AND IS ALIVE AND WAS GIVEN FALSE INFORMATION. PT, WHILE VERY ANGRY AT PERSON WHO TOLD HIM OF SON S , IS FOCUSING ON THE FACT HIS SON IS ALIVE. PT IS CALL LIGHT APPROPRIATE, COOPERATIVE WITH CARE. CALL LIGHT WITHIN REACH, RAILS TIMES 2, BED IN LOW POSITION.
[2024-09-22 07:22] VITALS: BP 113/66
[2024-09-22 10:09] VITALS: BP 115/65
[2024-09-22 15:27] VITALS: BP 97/67
--- NOTE | 2024-09-22 17:38 | NUR ---
NO ACUTE CHANGES, WIAITNG FOR CHEST AND ABD DIAGNOSTICS BACK, PATEINT PLEASANT TO CARE, LAUGHING AND TELLING JOKES, FRIEND CAME AND VISITED. MEDICATED FOR PAIN, ELAN SOB PRESNTLY, CALL LIGHT WITH IN REACH, WILL RELAY TO PM RN
[2024-09-22 21:00] VITALS: BP 109/54
[2024-09-23 03:08] VITALS: BP 111/60
--- NOTE | 2024-09-23 04:23 | NUR ---
PATIENT ALERT AND ORIENTED DURING SHIFT. PATIENT HAS REYNOLDS IN PLACE, ONE BOWEL MOVEMENT DURING SHIFT. PATIENT MEDICATED FOR PAIN-SEE EMAR. PATIENT ABLE TO TURN SELF. RLE DRESSING DONE DUE TO IT FALLING OFF. BED IN LOW POSITION WITH WHEELS LOCKED. CALL LIGHT WITHIN REACH
[2024-09-23 05:15] LABS: BASOPHILS ABSOLUTE AUTO 0.06 K/mm3 (0.00-0.23); BASOPHILS PERCENT AUTO 1 % (0-2); EOSINOPHILS ABSOLUTE AUTO 0.10 K/mm3 (0.00-0.68); EOSINOPHILS PERCENT AUTO 2 % (0-6); Hematocrit 25.4 % (37.0-53.0); Hemoglobin 8.0 g/dL (13.5-17.5); IMMATURE GRAN ABSOLUTE AUTO 0.01 K/mm3 (0.00-0.10); IMMATURE GRAN PERCENT AUTO 0 % (0-1); LYMPHOCYTES ABSOLUTE AUTO 1.64 K/mm3 (0.84-5.20); LYMPHOCYTES PERCENT AUTO 27 % (21-46); MONOCYTES ABSOLUTE AUTO 0.92 K/mm3 (0.16-1.47); MONOCYTES PERCENT AUTO 15 % (4-13); Mean Corpuscular HGB Conc 31.5 g/dL (31.5-36.5); Mean Corpuscular Volume 94 fL (80-100); NEUTROPHILS ABSOLUTE AUTO 3.27 K/mm3 (1.96-9.15); NEUTROPHILS PERCENT AUTO 55 % (41-73); NRBC ABSOLUTE 0.00 K/mm3 (0.00-0.02); NRBC Auto 0.0 /100 WBC (0.0-0.2); Platelet Count 196 K/mm3 (150-400); RDW Coefficient Variation 15.3 % (11.7-14.2); RDW Standard Deviation 53.3 fL (35.1-46.3)
[2024-09-23 05:27] LABS: Prothrombin Time Results 11.9 Sec (9.7-11.5)
[2024-09-23 05:50] LABS: Alanine Aminotransfer (ALT/SGP 21.0 U/L (12-78); Albumin, Blood 1.8 g/dL (3.4-5.0); Albumin/Globulin Ratio 0.5 (0.8-1.8); Anion Gap 5.0 mmol/L (3-11); Aspartate Aminotrans (AST/SGOT 30.0 U/L (12-37); Bilirubin, Total 0.4 mg/dL (0.1-1.0); Blood Urea Nitrogen 32.0 mg/dL (8-24); CO2, Blood 32.0 mmol/L (21-32); Calcium, Blood 7.4 mg/dL (8.5-10.1); Chloride, Blood 104.0 mmol/L (98-108); Creatinine, Blood 0.94 mg/dL (0.60-1.20); Globulin, Blood 3.6 g/dL (2.2-4.0); Glucose, Blood 145.0 mg/dL (70-99); Potassium, Blood 3.9 mmol/L (3.5-5.5); Sodium, Blood 137.0 mmol/L (136-145); Total Protein, Blood 5.4 g/dL (6.4-8.2)
[2024-09-23 07:27] VITALS: BP 104/57
[2024-09-23] MEDS ORDERED: Furosemide 10 MG / ML 2ML Vial IV SCH (09:00)
--- NOTE | 2024-09-23 11:04 | NUR ---
ASSUMED CARE PT A/O X 4 DOING WELL TODAY. RIGHT STUMP CDI, WAS CHANGED LAST NIGHT. REYNOLDS DRAINING DARK UELLOW URINE, NO C/O PAIN NO DISTRESS. STEADY TRANSFER DEVICE USED TO TAKE PT TO BATHROOM. PT DID VERY WELL AND WAS HAPPY TO BE ABLE TO GO INTO TOILET. CALL LIGHT WITHIN REACH, MAKES NEEDS KNOWN.
[2024-09-23 15:05] VITALS: BP 103/61
[2024-09-23 15:43] LABS: Anion Gap 7.0 mmol/L (3-11); Blood Urea Nitrogen 32.0 mg/dL (8-24); CO2, Blood 32.0 mmol/L (21-32); Calcium, Blood 7.8 mg/dL (8.5-10.1); Chloride, Blood 103.0 mmol/L (98-108); Creatinine, Blood 0.91 mg/dL (0.60-1.20); Glucose, Blood 106.0 mg/dL (70-99); Potassium, Blood 3.8 mmol/L (3.5-5.5); Sodium, Blood 138.0 mmol/L (136-145)
--- NOTE | 2024-09-23 19:09 | NUR ---
PT DOING WELL UP IN CHAIR, WORKED WITH PHYSICAL T AND DID WELL. C/O PAIN TO RIGHT LOWER EXTREMITIES. PT MEDICATED.
[2024-09-23 19:41] VITALS: BP 101/60
[2024-09-24 03:30] VITALS: BP 121/64
[2024-09-24 04:50] LABS: BASOPHILS ABSOLUTE AUTO 0.07 K/mm3 (0.00-0.23); BASOPHILS PERCENT AUTO 1 % (0-2); EOSINOPHILS ABSOLUTE AUTO 0.12 K/mm3 (0.00-0.68); EOSINOPHILS PERCENT AUTO 2 % (0-6); Hematocrit 25.2 % (37.0-53.0); Hemoglobin 7.9 g/dL (13.5-17.5); IMMATURE GRAN ABSOLUTE AUTO 0.02 K/mm3 (0.00-0.10); IMMATURE GRAN PERCENT AUTO 0 % (0-1); LYMPHOCYTES ABSOLUTE AUTO 1.64 K/mm3 (0.84-5.20); LYMPHOCYTES PERCENT AUTO 25 % (21-46); MONOCYTES ABSOLUTE AUTO 1.01 K/mm3 (0.16-1.47); MONOCYTES PERCENT AUTO 16 % (4-13); Mean Corpuscular HGB Conc 31.3 g/dL (31.5-36.5); Mean Corpuscular Volume 94 fL (80-100); NEUTROPHILS ABSOLUTE AUTO 3.62 K/mm3 (1.96-9.15); NEUTROPHILS PERCENT AUTO 56 % (41-73); NRBC ABSOLUTE 0.00 K/mm3 (0.00-0.02); NRBC Auto 0.0 /100 WBC (0.0-0.2); Platelet Count 178 K/mm3 (150-400); RDW Coefficient Variation 15.4 % (11.7-14.2); RDW Standard Deviation 52.4 fL (35.1-46.3)
[2024-09-24 05:11] LABS: Alanine Aminotransfer (ALT/SGP 24.0 U/L (12-78); Albumin, Blood 1.8 g/dL (3.4-5.0); Albumin/Globulin Ratio 0.5 (0.8-1.8); Anion Gap 5.0 mmol/L (3-11); Aspartate Aminotrans (AST/SGOT 36.0 U/L (12-37); Bilirubin, Total 0.4 mg/dL (0.1-1.0); Blood Urea Nitrogen 26.0 mg/dL (8-24); CO2, Blood 34.0 mmol/L (21-32); Calcium, Blood 7.6 mg/dL (8.5-10.1); Chloride, Blood 103.0 mmol/L (98-108); Creatinine, Blood 1.03 mg/dL (0.60-1.20); Globulin, Blood 3.8 g/dL (2.2-4.0); Glucose, Blood 107.0 mg/dL (70-99); Magnesium, Blood 2.1 mg/dL (1.6-2.4); Potassium, Blood 4.0 mmol/L (3.5-5.5); Sodium, Blood 138.0 mmol/L (136-145); Total Protein, Blood 5.6 g/dL (6.4-8.2)
[2024-09-24 07:31] VITALS: BP 111/69
[2024-09-24 15:41] VITALS: BP 109/65
--- NOTE | 2024-09-24 17:59 | NUR ---
NO ACUTE CHANGES, OOB IN CHAIR FOR PART OF THE DAY, POOR APPETITE THIS AM, CALL LIGHT WITH IN REACH
[2024-09-24 19:17] VITALS: BP 110/67
--- NOTE | 2024-09-25 04:07 | NUR ---
SHIFT SUMMARY NO ACUTE EVENTS DURING THIS SHIFT. HS BG 144. SNACKS X2 PROVIDED. PT C/O LE PAIN, MEDICATED PER EMAR. LABILE AFFECT DURING THIS SHIFT, ABLE TO REORIENT THE PT. REYNOLDS DRAINING TO GRAVITY. BED AT THE LOWEST POSITION, CALL LIGHT W/I REACH. PT IS ABLE TO MAKE HIS NEEDS KNOWN AND IS COOPERATIVE WITH CARE.
[2024-09-25 04:41] VITALS: BP 117/68
[2024-09-25 05:00] LABS: Hematocrit 24.4 % (37.0-53.0); Hemoglobin 7.7 g/dL (13.5-17.5)
[2024-09-25 05:24] LABS: Magnesium, Blood 1.9 mg/dL (1.6-2.4)
[2024-09-25 05:25] LABS: Anion Gap 7.0 mmol/L (3-11); Blood Urea Nitrogen 27.0 mg/dL (8-24); CO2, Blood 31.0 mmol/L (21-32); Calcium, Blood 7.4 mg/dL (8.5-10.1); Chloride, Blood 103.0 mmol/L (98-108); Creatinine, Blood 0.95 mg/dL (0.60-1.20); Glucose, Blood 142.0 mg/dL (70-99); Potassium, Blood 3.7 mmol/L (3.5-5.5); Sodium, Blood 137.0 mmol/L (136-145)
[2024-09-25 07:43] VITALS: BP 106/67
--- NOTE | 2024-09-25 11:38 | NUR ---
ASSUMED CARE PT IS A/O X 4 FEELS GREAT AND IS READY TO GO HOME. IV WENT BAD AND PT REQUESTED TO SEE BEFORE IT WAS REPLACED. DR MARIE INTO SEE PT AND CHANGED IV TO PO, WITH POSSIBLE DISCHARGE PENDING PHYSICAL T. PT UP IN [place] AMBULATING WITH PHYSICAL T.
--- NOTE | 2024-09-25 12:13 | NUR ---
AASSUMED CARE PT DOING WELL TODAY LAYING QUIETLY IN BED, AM PAIN MEDICATIONS WERE GIVEN SO PT COMFORTABLE THIS MORNING. REYNOLDS DRAINING CLR JAMAL URINE. RIGHT LEG DRESSING INTACT AND WILL BE CHANGED LATER TODAY SCHEDULED. CALL LIGHT WITHIN REACH, NO S/S OF DISTRESS AND MAKES NEEDS KNOWN.
[2024-09-25 15:13] VITALS: BP 110/65
--- NOTE | 2024-09-25 18:15 | NUR ---
DRESSING CHANGED DONE RIGHT STUMP WAS RINSED AND CLEANED DRIED AND REDRESSED WITH ZEROFORM, 4X4 AND KERLIX, THEN COVERED WITH SOCK. PT SAMUEL WELL AND IS NOW SITTING UP AT SIDE OF BED EATING DINNER.
[2024-09-25 20:50] VITALS: BP 109/65
[2024-09-26 02:26] VITALS: BP 109/57
[2024-09-26 05:05] LABS: Hematocrit 24.9 % (37.0-53.0); Hemoglobin 8.0 g/dL (13.5-17.5)
--- NOTE | 2024-09-26 05:05 | NUR ---
SHIFT SUMMARY NOC PT A/O X 4. PLEASANT AND COOPERATIVE WITH CARE. VSS. HS CBG 144 AND SCHEDULED GLARGINE HELD FOR CLINICAL JUDGEMENT. PT RLE AND L SHOULDER PAIN BEING MANAGED PER EMAR. PT HAS REYNOLDS IN PLACE WITH COPIOUS OUTPUT FROM IV LASIX. PT HAS SOCK OVER RBKA. PT IS WAITING ON SNF BED FOR DISCHARGE. PT CURRENTLY RESTING WITH BED IN LOWEST POSITION, AND CALL LIGHT WITHIN REACH.
[2024-09-26 05:33] LABS: Magnesium, Blood 1.9 mg/dL (1.6-2.4)
[2024-09-26 05:34] LABS: Anion Gap 7.0 mmol/L (3-11); Blood Urea Nitrogen 25.0 mg/dL (8-24); CO2, Blood 31.0 mmol/L (21-32); Calcium, Blood 7.4 mg/dL (8.5-10.1); Chloride, Blood 103.0 mmol/L (98-108); Creatinine, Blood 0.85 mg/dL (0.60-1.20); Glucose, Blood 157.0 mg/dL (70-99); Potassium, Blood 4.0 mmol/L (3.5-5.5); Sodium, Blood 137.0 mmol/L (136-145)
[2024-09-26 07:27] VITALS: BP 108/64
[2024-09-26 15:40] VITALS: BP 124/67
--- NOTE | 2024-09-26 15:40 | NUR ---
"Spiritual Care | pt. Request Pt. is awake in bed and welcomes my visit. Pt. verbalized his expectation to be discharged tomorrow. Listen with interest and encourgaement. Pt. aslo verbalized that some of the things that he thought were true about his family turned out to be false. pt. verbalized that things we had been prayaing about seemed to be coming together. Pastoral care is given. Pt. requested this director of event sales to contact Chaplain Love to give him an update. Prayed with the Pt. Pt. verbalized gratitude for the spiritual care visit."
--- NOTE | 2024-09-26 18:23 | NUR ---
SHIFT SUMMARY NO ACUTE CHANGES, A/Ox4, ABLE TO MAKE NEEDS KNOWN AND USES CALL SYSTEM APPROPRIATELY. PT USES SIT TO STAND TO TRANSFER - DOES WELL AND ABLE TO PULL SELF UP. WC DELIVERED - PT THANKFUL HE CAN PROPEL AROUND UNIT. MEDICATED PER EMAR FOR PAIN. BLOOD SUGARS WELL CONTROLED WITH CURRENT REGIMEN. IV SALINE LOCKED. DRESSING CHANGE COMPLETED ON R BKA. PT CURRENTLY RESTING IN WC EATING DINNER, CALL LIGHT WITHIN REACH.
[2024-09-26 19:44] VITALS: BP 126/76
--- NOTE | 2024-09-26 21:19 | NUR ---
CALLED TO ELEMENTARY TEACHER PROVIDER TO INFORM OF CBG OF 85. INFORMED THIS RN IS GOING TO HOLD SCHEDULED GLARGINE. PROVIDER AGREED AND NO NEED FOR SUPPLEMENTAL INSULIN AT THIS TIME. PT GIVEN JUICE AND PROVIDER AGREED WITH THIS WELL.
--- NOTE | 2024-09-27 03:36 | NUR ---
PT COMPLAINS OF NAUSEA. PROMETHAZINE GIVEN PER ORDERS. BLOOD SUGARS CHECKED DUE TO LOW CBG AT START OF SHIFT. CBG 141. EDUCATED PT HOW PAIN MEDS TAKEN ON AN EMPTY STOMACH COULD CAUSE NAUSEA. PT V/U. WILL CONTINUE TO MONITOR.
[2024-09-27 05:07] LABS: BASOPHILS ABSOLUTE AUTO 0.06 K/mm3 (0.00-0.23); BASOPHILS PERCENT AUTO 1 % (0-2); EOSINOPHILS ABSOLUTE AUTO 0.07 K/mm3 (0.00-0.68); EOSINOPHILS PERCENT AUTO 1 % (0-6); Hematocrit 24.5 % (37.0-53.0); Hemoglobin 7.8 g/dL (13.5-17.5); IMMATURE GRAN ABSOLUTE AUTO 0.02 K/mm3 (0.00-0.10); IMMATURE GRAN PERCENT AUTO 0 % (0-1); LYMPHOCYTES ABSOLUTE AUTO 1.37 K/mm3 (0.84-5.20); LYMPHOCYTES PERCENT AUTO 26 % (21-46); MONOCYTES ABSOLUTE AUTO 0.60 K/mm3 (0.16-1.47); MONOCYTES PERCENT AUTO 11 % (4-13); Mean Corpuscular HGB Conc 31.8 g/dL (31.5-36.5); Mean Corpuscular Volume 93 fL (80-100); NEUTROPHILS ABSOLUTE AUTO 3.25 K/mm3 (1.96-9.15); NEUTROPHILS PERCENT AUTO 61 % (41-73); NRBC ABSOLUTE 0.00 K/mm3 (0.00-0.02); NRBC Auto 0.0 /100 WBC (0.0-0.2); Platelet Count 168 K/mm3 (150-400); RDW Coefficient Variation 14.9 % (11.7-14.2); RDW Standard Deviation 50.4 fL (35.1-46.3)
[2024-09-27 05:40] VITALS: BP 99/62
[2024-09-27 05:55] LABS: Anion Gap 7.0 mmol/L (3-11); Blood Urea Nitrogen 23.0 mg/dL (8-24); CO2, Blood 30.0 mmol/L (21-32); Calcium, Blood 7.3 mg/dL (8.5-10.1); Chloride, Blood 104.0 mmol/L (98-108); Creatinine, Blood 0.77 mg/dL (0.60-1.20); Glucose, Blood 137.0 mg/dL (70-99); Magnesium, Blood 1.9 mg/dL (1.6-2.4); Potassium, Blood 3.5 mmol/L (3.5-5.5); Sodium, Blood 137.0 mmol/L (136-145)
--- NOTE | 2024-09-27 06:36 | NUR ---
SHIFT SUMMARY A&OX4. ABLE TO MAKE ALL NEEDS KNOWN. IN WHEELCHAIR THROUGHOUT SHIFT. ABLE TO SLIDE TRANSFER TO BED WITH STAND BY ASSIST. PT VERY DETERMINED TO WORK HARD TO BE INDEPENDENT. HAD SOME PAIN DURING SHIFT AND MEDICATED PER EMAR. CBG LOW AT 85 AT START OF SHIFT. GLARGINE HELD AND FIXTURE BUILDER PROVIDER CALLED AND AGREED TO HOLD GLARGINE. PT HAD AN EPISODE OF NAUSEA. MEDICATED PER EMAR. PT HAS BEEN ABLE TO REST EVER SINCE IN BED AT LOWEST POSITION WITH RAILS X2 UP AND CALL LIGHT WITHIN REACH.
[2024-09-27 07:14] VITALS: BP 108/65
[2024-09-27] MEDS ORDERED: Insulin Glargine-Yfgn 100 Unit/mL 3 ML SYR SC SCH (08:00)
[2024-09-27] MEDS ORDERED: Insulin Human Lispro 100 Units/ML 3ML Syringe SC SCH (11:30)
[2024-09-27] MEDS ORDERED: ALBU2.5V5 INH (13:31)
[2024-09-27] MEDS ORDERED: FERSU300 PO (13:32)
[2024-09-27] MEDS ORDERED: JUVEN PO (13:32)
[2024-09-27] MEDS ORDERED: FURO40 PO (13:34)
[2024-09-27] MEDS ORDERED: INSULIN GL300 UNIT/1 SC (13:37)
[2024-09-27] MEDS ORDERED: HUMULIN N100 UNIT/1 SC (13:38)
[2024-09-27] MEDS ORDERED: NARCAN4 M1 (13:40)
[2024-09-27] MEDS ORDERED: OXYACE7.5T PO (13:43)
[2024-09-27] MEDS ORDERED: MIRALAX17 GM PO (13:44)
[2024-09-27] MEDS ORDERED: VISBIOME 112.51 EACH PO (13:45)
--- NOTE | 2024-09-27 14:57 | NUR ---
DISCHARGE: PT D/C @ 1410 VIA WHEELCHAIR WITH TRANSPORT TO [facility] TO STAY WITH SISTER. PLEASANT AND COOPERATIVE. ABLE TO MAKE NEEDS KNOWN. STUMP TO RLE CHANGED PRIOR TO D/C. MEDICATIONS FAXED TO [facility] IN [place]. IV REMOVED BY PIT AND AUXILIARIES SUPERVISOR W/O COMPLICATIONS. HARD SCRIPT FOR PT/OT AND GLUCOMETER SENT WITH PT. NO QUESTIONS AT TIME OF D/C.
== END 2024-09-27 14:26 | disposition home or self-care (01) | DRG 853 ==
LOC: PCU 01:20 → MEDS 03:21 → PCU 03:23 → MEDS 09-09 10:37
PROVIDERS: Nurse Practitioner Acute Care; Orthopaedic Surgery Sports Medicine; Registered Nurse; Student in an Organized Health Care Education/Training Program; ADMIT Student in an Organized Health Care Education/Training Program
PROC: 3E03329 Introduction of Other Anti-infective into Peripheral Vein, Percutaneous Approach (ICD-10-PCS; 2024-09-06)
PROC: 0Y6H0Z3 Detachment at Right Lower Leg, Low, Open Approach (ICD-10-PCS; principal; 2024-09-11 16:00)
DX: A41.9 Sepsis, unspecified organism (principal); J96.01 Acute respiratory failure with hypoxia; D62 Acute posthemorrhagic anemia; E87.1 Hypo-osmolality and hyponatremia; S22.42XA Multiple fractures of ribs, left side, initial encounter for closed fracture; E87.20 Acidosis, unspecified; L03.115 Cellulitis of right lower limb; Z59.00 Homelessness unspecified; E46 Unspecified protein-calorie malnutrition; J44.9 Chronic obstructive pulmonary disease, unspecified; E87.6 Hypokalemia; F17.210 Nicotine dependence, cigarettes, uncomplicated; F12.90 Cannabis use, unspecified, uncomplicated; R29.6 Repeated falls; E11.65 Type 2 diabetes mellitus with hyperglycemia; I87.8 Other specified disorders of veins; B19.20 Unspecified viral hepatitis C without hepatic coma; M75.102 Unspecified rotator cuff tear or rupture of left shoulder, not specified as traumatic; E87.70 Fluid overload, unspecified; I95.9 Hypotension, unspecified; Z68.28 Body mass index [BMI] 28.0-28.9, adult; Z86.19 Personal history of other infectious and parasitic diseases; Z79.899 Other long term (current) drug therapy; Z88.8 Allergy status to other drugs, medicaments and biological substances; W18.30XA Fall on same level, unspecified, initial encounter
CPT/HCPCS: 36415; 36430; 51701; 51703; 71046; 76700; 80048; 80053; 80202; 82607; 82728; 82746; 82947; 83036; 83540; 83550; 83605; 83735; 85014; 85018; 85025; 85045; 85610; 85651; 86140; 86850; 86900; 86901; 86923; 87070; 87075; 87077; 87186; 87205; 88305; 88307; 92610; 93306; 94640; 94664; 94760; 94762; 97110; 97162; 97530; A9270; C1751; J0295; J0696; J0780; J1171; J1650; J1815; J1885; J1938; J2250; J2270; J2405; J2543; J2704; J3010; J3373; J3480; J7030; J7040; J7050; J7120; P9016